=== PATIENT | female | born 1970 | race Caucasian/White ===

== ENCOUNTER 2024-03-16 12:33 | Outpatient (CLI) | payer OTHER, MEDICAID, SELFPAY ==
--- NOTE | ~2024-03-16 | US_ITS ---
EXAMINATION: US THYROID BIOPSY DATE: 03/16/2024 15:01 NOTCHING MACHINE OPERATOR INDICATION: TI-RADS 4 thyroid nodule TECHNIQUE: The procedure for biopsy of the thyroid nodule and its benefits and risks were explained to the patie nt. Potential risk included were not limited to bleeding, infection, and nondiagnostic specimen. The neck was prepped and draped in the usual sterile manner. 3 cc 1% lidocaine was used for local an esthesia. [7 passes were made with a 25G needle into the right thyroid lesion. Appropriate needle l ocation was documented with continuous sonographic guidance. The specimens were passed to the cytopa thologist in the room. All needles were removed and a sterile bandage applied over the biopsy site. The patient tolerated t he procedure without immediate complications or complaints. FINDINGS: 13 x 10 x 13 mm nodule within the posterior portion of the lower pole of the right lobe of the thyroi d gland, Subsequent images demonstrate needles advanced into the lesion for biopsy. IMPRESSION: 1. Successful ultrasound guided biopsy of a right thyroid nodule. Please refer to pathology report for final histologic analysis. Reviewed, dictated and finalized at location A. HING MACHINE OPERATOR IMPRESSION: 1. Successful ultrasound guided biopsy of a right thyroid nodule. Please refe r to pathology report for final histologic analysis.
--- OUTSIDE RECORDS SUMMARY | 2024-03-16 13:05 | XMS_ITS | Referral Summary ---
Author Organization [facility] Address [address] [place] [address] Care Team Providers Care Ticker Wirer Name Role Phone Pedro Luis Dozier MD Primary Care Provider [phone] Encounters Date Type Department Care Team Description 03/13/2024 Telephone [facility] Advanced Medicine [facility]) - [facility] ENT [address] [facility] 11th [place] [address] [place] [address] Sameera Do 03/13/2024 Orders Only [facility] Otolaryngology 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 Gender Identity Not on file Sexual Orientation Not on file Last Filed Vital Signs Vital Sign Reading Time Taken Comments Blood Pressure 136/101 12/20/2020 12:30 AM CDT Pulse 87 12/20/2020 12:30 AM CDT Temperature 36.3 ??C (97.4 ??F) 12/19/2020 6:19 PM CD T Respiratory Rate 14 12/19/2020 11:4 0 PM CDT Oxygen Saturation 95% 12/20/2020 12: 30 AM CDT Inhaled Oxygen Concentration - - Weight 100.7 kg (222 lb 0.1 oz) 12/19/2020 6:19 PM CDT Height - - Body Mass Index - - Plan of Treatment Not on file Insurance O Care Teams Ticker Wirer Relationship Specialty Start Date End Date Pedro Luis Dozier MD [address] [address] PCP - General Family Medicine 12/19/20
--- OUTSIDE RECORDS SUMMARY | 2024-03-16 13:05 | XMS_ITS | Encounter Summary ---
Author Organization [facility] Address [address] [place] [address]. [place] [address] [place] [address] Care Team Providers Care Cotton Grader Name Role Phone Edith Boo MD Primary Care Provider [phone] Encounter Details Date Type Department Care Team ([facility] Contact Info) Description 12/25/2023 [employer] Message Enc [facility] Orthopedic & Sports Medicine - [place] [id number] [place], [facility] Provider nerve testing Social History Tobacco Use Types Packs/Day Years Used Date Smoking Tobacco: Former Cigarettes 0.3 7.5 1 03/09/1986 - 07/07/1994 Smokeless Tobacco: Never Alcohol Use Standard Drinks/Week Comments Not Currently 0 (1 standard drink = 0.6 oz pur e alcohol) rarely AUDIT-C Answer Date Recorded Frequency of Alcohol Consumption Monthly or less 07/07/2018 Average Number of Drinks Not on file 019 Frequency of Binge Drinking Not on file 06/19 PHQ-2 Answer Date Recorded Patient Health Questionnaire-2 Score 0 09/11/2023 Comments No Sex and Gender Information Value Date Recorded Sex Assigned at Female 03/05/2024 8:18 AM QUAIL FARMER Legal Sex Female 8:06 PM CDT Gender Identity Female 12/29/2021 4:00 PM QUAIL FARMER Sexual Orientation Not on file documented as of this encounter Plan of Treatment Upcoming Encounters Date Type Department Care Team (Late st Contact Info) Description 03/20/2024 9:00 AM QUAIL FARMER Appointment [facility] Outpatient Rehab [address] [facility] [place] [address] Amna Dodson, PT [address] [place] [address] Gustavo Alvarado MD [address] [facility] [address] [place] [address] Hector Harrison MD [address] [facility] [place] [address] Litzy Story, OT [address] [place], [place] [id number] 03/26/2024 9:40 AM QUAIL FARMER Office Visit [facility] - [place] [address] [place], [place] [address] [phone] Hector Harrison MD [address] [place], [place] [address] 296- 03/30/2024 9:20 AM QUAIL FARMER Office Visit [facility] Multispecialty Care - [facility] [address] [facility] [place] [address] Suman Perez MD [address] [facility] [address] [place] [address] documented as of this encounter Visit Diagnoses Not on filedocumented in this encounter Care Teams Cotton Grader Relationship Specialty Start Date End Date Edith Boo MD [address] [facility] [address] [place] [address] PCP - General 05/20/23 documented as of this encounter
--- OUTSIDE RECORDS SUMMARY | 2024-03-16 13:05 | XMS_ITS | Clinical Summary ---
Author Organization [facility] Address [address] [place] [address] Care Team Providers Care Executive Cyber Leader Name Role Phone Pedro Luis Dozier MD Primary Care Provider [phone] Allergies No known active allergies Encounters Date Type Department Care Team Description 03/13/2024 [facility] Advanced Medicine [facility]) - [facility] ENT [address] [facility] Advanced Medicine 11th [place] [address] [place] [address] Sameera Do 03/13/[address] [facility] Otolaryngology [address] [facility] [place] [address] Hemalatha Kirk RN from Last 3 Months Social History Tobacco Use Types Packs/Day Years Used Date Smoking Tobacco: Never Assessed Personal Safety Answer Date Recorded Getting School Help Needed Not on file 04/15 Comments No Sex and Gender Information Value Date Recorded Sex Assigned at Not on file Legal Sex Female 8:41 AM STONEMASON Gender Identity Not on file Sexual Orientation [...] Mass Index - - Plan of Treatment Health Maintenance Due Date Last Done Comments Breast Cancer Screening-Mammogram 1971 Cervical Cancer Screening 1971 Colon Cancer Screening-Colonoscopy 1971 Depression Screening 1971 Hepatitis C Screening 1971 Pneumococcal vaccine <65 (1 of 2 - PCV) 08/11/1977 Hepatitis B Screening 08/11/1989 Regular Well Visit/Exam 18-64 08/11/1989 Zoster Vaccine (1 of 2) 08/11/2021 Covid-19 Vaccine (2 - 2023- season) 10/20/202303/2020 Influenza Vaccine (#1) 2023 DTaP/Tdap/Td Vaccine (2 - Td or Tdap) 04/26/203010/2020 Insurance [facility] Care Teams Executive Cyber Leader Relationship Specialty Start Date End Date Pedro Luis Dozier MD [address] [address] PCP - General Family Medicine 12/19/20
--- OUTSIDE RECORDS SUMMARY | 2024-03-16 13:06 | XMS_ITS | Encounter Summary ---
Author Organization [facility] Address [address] [place] [address]. [place] [address] [place] [address] Care Team Providers Care Adjuster And Inspector Name Role Phone Edith Boo MD Primary Care Provider [phone] Encounter Details Date Type Department Care Team (Late Contact Info) Description 02/18/2024 [facility] [place] BUSINESS OFF[facility] Provider ACTION REQUIRED Social History Tobacco Use Types Packs/Day Years [...] Sex Assigned at Female 03/05/2024 8:18 AM VEIN ACCESS TECHNICIAN Legal Sex Female 8:06 PM CDT Gender Identity Female 12/29/2021 4:00 PM VEIN ACCESS TECHNICIAN Sexual Orientation Not on file documented as of this encounter Plan of Treatment Upcoming Encounters Date Type Department Care Team (Late Contact Info) Description 03/20/2024 9:00 AM VEIN ACCESS TECHNICIAN Appointment [facility]hab [address] [facility] [place] [address] Amna Dodson, PT [address] [place] [address] Gustavo Alvarado MD [address] [facility] [address] [place] [address] Hector Harrison MD [address] [place] [address] Litzy Story, OT [address] [place] [address] 03/26/2024 9:40 AM VEIN ACCESS TECHNICIAN Office Visit [facility] Orthopedic & Sports Medicine - [place] [address] [place] [address] Hector Harrison MD [address] [place] [address] 03/30/2024 9:20 AM VEIN ACCESS TECHNICIAN Office Visit [facility] Multispecialty Care - [address], [address] [place] [address] Suman Perez MD [address] [facility] [address] [place] [address] documented as of this encounter Visit Diagnoses Not on filedocumented in this encounter Care Teams Adjuster And Inspector Relationship Specialty Start Date End Date Edith Boo MD [address] [facility] [address] [place] [address] PCP - General 05/20/23 documented as of this encounter
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
--- OUTSIDE RECORDS SUMMARY | 2024-03-16 13:07 | XMS_ITS | Clinical Summary ---
Author Organization [facility] [employer] Address [address] [place] [address] Care Team Providers Care Spanish Language Lecturer Name Role Phone Nancy Harp IT SUPPORT TECHNICIAN-COMPETITIVE SHOPPER Primary Care Provi tara Source Comments [facility],non-owned Affiliates and Associated Physician Practices is amultiple site organization consisting of ambulatory clinics and hospital sitesin [place], [place]. This disclosure is being madepursuant to the Care Everywhere program and may not contain all information available regarding this patient. Last updated 17.[facility] Allergies No known active allergies Medications * Be aware that medications may not be up to date on this document. Alwaysverify current medications with the patient. Medication Sig Dispensed Refills Start Date End Date Status fluticasone-vilanter ol (Breo Ellipta) 200-25 MCG/ACT inhaler once daily 11/17/2021 Active rosuvastatin (Crestor) 5 MG tablet once daily 10/26/2021 Active Levothyroxine Sodium 75 MCG/ML SOLN Active sertraline (Zoloft) 100 MG tablet Take 1 (one) tablet by mouth once daily Active clonazePAM (KlonoPIN) 0.5 MG tablet Take 1 (one) tablet by mouth 2 times daily as needed for Anxiety Active VITAMIN D PO Take 50,000 mg by mouth every 7 days Active azithromycin (Zithromax) 250 MG tablet 500 mg PO on the first day; then, 250 mg PO daily for 4 days 6 tablet 10/06/2022 Active methylPREDNISolone (Medrol Dosepak) 4 MG tablet Take by mouth as directed Take as directed by mouth per package instructions. Start 10/07/2022 21 tablet 10/06/2022 Active albuterol HFA (ProAir HFA) 108 (90 Base) MCG/ACT inhaler Inhale 2 (two) puffs by mouth every 4 hours as needed 8.5 g 10/06/2022 Active Social History Tobacco Use Types Packs/Day Years Used Date Smoking Tobacco: Former Cigarettes Smokeless Tobacco: Never Tobacco Cessation:Counseling Given: Not Answered Alcohol Use Standard Drinks/Week Comments Yes 0 (1 standard drink = 0.6 oz pur e alcohol) rarely PHQ-2 Answer Date Recorded Patient Health Questionnaire-2 Score 0 10/06/2022 Sex and Gender Information Value Date Recorded Sex Assigned at Not on file Gender Identity Not on file Sexual Orientation Not on file Last Filed Vital Signs Vital Sign Reading Time Taken Comments Blood Pressure 124/72 10/06/2022 10:54 AM CDT Pulse 110 10/06/2022 10:54 AM CDT Temperature - - Respiratory Rate - - Oxygen Saturation 97% 10/06/2022 10:54 AM CDT Inhaled Oxygen Concentration - - Weight 95.9 kg (211 lb 6.4 oz) 10/06/2022 10:54 AM CDT Height - - Body Mass Index - - Plan of Treatment Health Maintenance Due Date Last Done Comments COLOGUARD (AGES 45-75) - COL ON CA SCREENING [address] COLONOGRAPHY - COLON CA SCREENING 1971 FIT - COLON CA SCREENING 1971 FLEX SIG - COLON CA SCREENING 1971 MAMMOGRAM 1971 PAP SMEAR 1971 HIV SCREENING 08/11/1986 HEPATITIS C SCREENING 08/07/1989 DTAP/TDAP/TD VACCINES (1 - Tdap) 08/11/1990 HEPATITIS B VACCINE (1 of 3 - 19+ 3-dose series) 08/11/1990 PNEUMOCOCCAL VACCINE 50+ (1 of 1 - PCV) 08/11/2021 ZOSTER VACCINE (1 of 2) 08/11/2021 COVID-19 VACCINE (2 - 2023-2 5 season) 2023 05/20/2020 INFLUENZA VACCINE (#1) 2023 DEPRESSION SCREENING 02/19/2024 10/06/2022 COLONOSCOPY - COLON CA SCREENING 02/09/2032 02/08/2022, 02/08/2022 Colorectal Cancer Screening 02/09/2032 HIB VACCINE Aged Out No longer eligi ble based on patient's age to complete this topic HPV VACCINE Aged Out No longer eligi ble based on patient's age to complete this topic MENINGOCOCCAL (Group B) VACCINE Aged Out No longer eligible b ased on patient's age to complete this topic MENINGOCOCCAL VACCINE Aged Out No elli merlyn eligible based on patient's age to complete this topic PNEUMOCOCCAL VACCINE Aged Out No long er eligible based on patient's age to complete this topic Care Teams Spanish Language Lecturer Relationship Specialty Start Date End Date Nancy Harp, IT SUPPORT TECHNICIAN-COMPETITIVE SHOPPER [address], [place] [address] PCP - General 06/03/23
--- OUTSIDE RECORDS SUMMARY | 2024-03-16 13:07 | XMS_ITS | Referral Summary ---
Author Organization [facility] [employer] Address [address] [place] [address] Care Team Providers Care Seasonal Tax Preparer Name Role Phone Nancy Harp CHILD CARE TEAM LEAD-RADIOLOGICAL DEFENSE OFFICER Primary Care Provi tara Source Comments [facility] [employer],non-owned Affiliates and Associated Physician Practices is amultiple site organization consisting of ambulatory clinics and hospital sitesin [place], [place], [place] and [place]. This disclosure is being madepursuant to the Care Everywhere program and may not contain all information available regarding this patient. Last updated 17.[facility] [employer] Allergies No known active allergies Medications * [...] - Plan of Treatment Not on file Care Teams Seasonal Tax Preparer Relationship Specialty Start Date End Date Nancy Harp APRN-PATRICIO [address] [place] [address] PCP - General 06/03/23
--- OUTSIDE RECORDS SUMMARY | 2024-03-16 13:07 | XMS_ITS | Patient Health Record ---
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 Role Phone Edith Boo MD Primary Care Provider UnavailNai Washington Unavailable [phone] Giuseppe Fraire Unavailable [phone] [employer], Provider Unavailable Unavailable Ernesto Padron Unavailable [phone] Allergies No Known Allergies Results Component Value Reference Range Notes DRUG SCREEN, 14 DRUGS (DETEC TIMED), URINE Reviewed date:05/23/2023 12:00:00 AM Interpretation: Performing Lab: Notes/Report: Amphetamine negative Barbiturates negative Benzodiazipine negative Buprenorphine negative Cocaine negative MDMA/Ectasy negative Methadone negative Methamphetamine negative Morphine negative note ALL NEGATIVE Oxycodone negative Phenocyclidine negative THC negative Reason For Referral No Information Medications Medication SIG (Take, Route, Frequency, Duration) Notes Start Date End Date Status Aspirin Adult Low Strength 81 MG Oral 06/21/2023 Active Trelegy Ellipta 200-62.5-25 MCG/ACT INHALE 1 PUFF INTO THE LUNGS DAILY. Inhalation for 30 Days Active Rosuvastatin Calcium 5 MG TAKE ONE TABLET BY MOUTH DAILY Oral for 30 Days Active Sertraline HCl 100 MG 2 tablet every morning Oral Once a day for 90 days Active Atomoxetine HCl 40 mg TAKE ONE CAPSULE BY MOUTH EVERY MORNING FOR 30 DAYS for 30 Active clonazePAM 0.5 MG 1 tablet Oral Once a day for 30 days As needed 01/22/2024 Active Atomoxetine HCl 60 MG 1 capsule in the morning Orally Once a day for 30 days please discontinue 40mg remaining scripts Active Albuterol Sulfate HFA 108 (90 Base) MCG/ACT INHALE 2 PUFFS BY MOUTH EVERY 4 HOURS NEEDED Inhalation for 17 Days Active Vitamin D (Ergocalciferol) 1.25 MG (60551 UT) TAKE 1 CAPSULE BY MOUTH WEEKLY Oral for 28 Days Active Levothyroxine Sodium 75 MCG TAKE ONE TABLET BY MOUTH DAILY Oral for 30 Days Active Social History Tobacco Use: Social History [...] user Light cigarett e smoker (1-9 cigs/day) Problems Problem Type SNOMED Code ICD Code Onset Dates Problem Status W/U Status Risk Notes Problem Severe recurrent major depression without psychotic features (57206255) Major depressive disorder, recurrent severe without psychotic features (F33.2) Active confirmed Problem Generalized anxiety disorder (52476744) Generalized anxiety disorder (F41.1) Active confirmed Problem Posttraumatic stress disorder (55595764) Post-traumatic stress disorder, chronic (F43.12) Active confirmed Problem Attention deficit hyperactivity disorder (430368829) ADHD (attention deficit hyperactivity disorder), combined type (F90.2) Active confirmed Problem Depression (034403786) Depression (F32.A) Active confirmed Problem 35728364 Sleep disturbanc e (G47.9) Active confirmed Problem 7169690 Passive suicidal ideations (R45.851) Active confirmed Vital Signs Heart Rate 76 /min 10/18/2023 Oximetry 98 % 08/19/2023 Height-cm 167.64 cm 10/18/2023 Blood pressure diastolic 89 mm Hg 10/18/2023 Weight-kg 97.07 kg 05/23/2023 Height 66.00 in 10/18/2023 Blood pressure systolic 124 mm Hg 10/18/2023 Weight 214.00 lbs 05/23/2023 BMI 34.5 kg/m2 05/23/2023 Procedures Procedure Date Ordered Date Performed Result Body Sit e ADHD Testing 11/01/2023 N/A Encounters Encounter Location Date Provider Diagnosis [facility] [employer] [facility] [address] [place] [id number] 05/23/2023 Nai London Major depressive disorder, recurrent severe without psychotic features F33.2 ; Generalized anxiety disorder F41.1 and Post-traumatic stress disorder, chronic F43.12 [facility], [facility] [address] [place] [address] 06/21/2023 Nai Lita Major depressive disorder, recurrent severe without psychotic features F33.2 ; Generalized anxiety disorder F41.1 and Post-traumatic stress disorder, chronic F43.12 [facility], [facility] [address] [place] [address] 07/30/2023 Nai Lita Major depressive disorder, recurrent severe without psychotic features F33.2 [facility], [facility] [address] [place] [address] 08/01/2023 Nai Lita Major depressive disorder, recurrent severe without psychotic features F33.2 [facility], [facility] [address] [place] [address] 08/05/2023 Nai Lita Major depressive disorder, recurrent severe without psychotic features F33.2 [facility], [facility] [address] [place] [address] 08/07/2023 Nai Lita Major depressive disorder, recurrent severe without psychotic features F33.2 [facility], [facility] [address] [place] [address] 2023 Nai Lita Major depressive disorder, recurrent severe without psychotic features F33.2 [facility], [facility] [address] [place] [address] 08/15/2023 Nai Lita Major depressive disorder, recurrent severe without psychotic features F33.2 [facility], [facility] [address] [place] [address] 08/19/2023 Nai Lita Major depressive disorder, recurrent severe without psychotic features F33.2 [facility], [facility] [address] [place] [address] 08/21/2023 Nai Lita Major depressive disorder, recurrent severe without psychotic features F33.2 [facility], [facility] [address] [place] [address] 08/26/2023 Nai Lita Major depressive disorder, recurrent severe without psychotic features F33.2 ; Generalized anxiety disorder F41.1 and Post-traumatic stress disorder, chronic F43.12 [facility], [facility] [address] [place] [address] 08/29/2023 Nai Lita Major depressive disorder, recurrent severe without psychotic features F33.2 [facility], [facility] [address] [place] [address] 09/09/2023 Giuseppe Juno Major depressive disorder, recurrent severe without psychotic features F33.2 [facility], [facility] [address] [place] [address] 09/19/2023 Ernesto Clubb Major depressive disorder, recurrent severe without psychotic features F33.2 [facility], [facility] [address] [place] [address] 09/26/2023 Ernesto Clubb Major depressive disorder, recurrent severe without psychotic features F33.2 [facility], [facility] [address] [place] [address] 09/27/2023 Nai Lita Major depressive disorder, recurrent severe without psychotic features F33.2 ; Generalized anxiety disorder F41.1 and Post-traumatic stress disorder, chronic F43.12 [facility] [address] [place] [address] 10/07/2023 Ernesto Clubb Major depressive disorder, recurrent severe without psychotic features F33.2 [facility], [facility] [address] [place] [address] 10/18/2023 Ernesto Clubb Major depressive disorder, recurrent severe without psychotic features F33.2 ; Generalized anxiety disorder F41.1 ; Sleep disturbance G47.9 and Passive suicidal ideations R45.851 [facility], [facility] [address] [facility] [address] [place] [address] 11/01/2023 Nai Lita [facility] [address] [place] [address] 11/01/2023 Nai Lita Major depressive disorder, recurrent severe without psychotic features F33.2 ; Generalized anxiety disorder F41.1 ; Post-traumatic stress disorder, chronic F43.12 and ADHD (attention deficit hyperactivity disorder), combined type F90.2 [facility], [facility] [address] [place] [address] 11/04/2023 Giuseppe Juno ADHD (attention deficit hyperactivity disorder) F90.9 [facility], [facility] [address] [place] [address] 11/06/2023 Nai Lita Major depressive disorder, recurrent severe without psychotic features F33.2 ; Generalized anxiety disorder F41.1 ; Post-traumatic stress disorder, chronic F43.12 and ADHD (attention deficit hyperactivity disorder), combined type F90.2 [facility], [facility] [address] [place] [address] 12/11/2023 Nai Lita Major depressive disorder, recurrent severe without psychotic features F33.2 ; Generalized anxiety disorder F41.1 ; Post-traumatic stress disorder, chronic F43.12 and ADHD (attention deficit hyperactivity disorder), combined type F90.2 [facility], [facility] [address] [place] [address] 05/10/2023 Provider [facility], [facility] [address] [place] [address] 05/13/2023 Provider [facility], [facility] [address] [place] [address] 06/03/2023 [facility], [facility] [address] [place] [address] 06/21/2023 Provider [facility], [facility] [address] [place] [address] 07/04/2023 [facility], [facility] [address] [place] [address] 07/06/2023 Provider [facility], [facility] [address] [place] [address] 07/07/2023 Provider [facility], [facility] [address] [place] [address] 07/23/2023 [facility] [address] [place] [address] 07/25/2023 [facility] [address] [place] [address] 07/31/2023 [facility] [address] [place] [address] 08/06/2023 [facility] [address] [place] [address] 10/25/2023 Nai London [facility] [employer], [facility] [address] [place] [address] 11/06/2023 Nai London Assessments Encounter Date Diagnosis (ICD Code) Assessment Notes Treatment Notes Treatment Clinical Notes Section Notes 08/26/2023 Major depressive disorder, recurrent severe without psychotic features (ICD-10 - F33.2) 08/26/2023 Generalized anxiety disorder (ICD-10 - F41.1) 12/11/2023 Major depressive disorder, recurrent severe without psychotic features (ICD-10 - F33.2) Common side effects to SSRI medications include headaches, dry mouth/eye, GI upset (including indigestion, nausea, diarrhea), sleeping problems (insomnia or drowsiness), decreased libido, blurred vision, dizziness. Generally, side effects will subside or lessen with time and are common during drug initiation and dose changes. If they persist please contact the office. 11/01/2023 Major depressive disorder, recurrent severe without psychotic features (ICD-10 - F33.2) 11/04/2023 ADHD (attention deficit hyperactivity disorder) (ICD-10 - F90.9) 11/06/2023 Major depressive disorder, recurrent severe without psychotic features (ICD-10 - F33.2) Common side effects to SSRI medications include headaches, dry mouth/eye, GI upset (including indigestion, nausea, diarrhea), sleeping problems (insomnia or drowsiness), decreased libido, blurred vision, dizziness. Generally, side effects will subside or lessen with time and are common during drug initiation and dose changes. If they persist please contact the office. 05/23/2023 Major depressive disorder, recurrent severe without psychotic features (ICD-10 - F33.2) 05/23/2023 Generalized anxiety disorder (ICD-10 - F41.1) 05/23/2023 Post-traumatic stress disorder, chronic (ICD-10 - F43.12) 06/21/2023 Major depressive disorder, recurrent severe without psychotic features (ICD-10 - F33.2) 06/21/2023 Generalized anxiety disorder (ICD-10 - F41.1) 06/21/2023 Post-traumatic stress disorder, chronic (ICD-10 - F43.12) 07/30/2023 Major depressive disorder, recurrent severe without psychotic features (ICD-10 - F33.2) Continue Spravato treatment twice weekly. Continue current medications 08/01/2023 Major depressive disorder, recurrent severe without psychotic features (ICD-10 - F33.2) Continue twice weekly esketamine treatments. 08/05/2023 Major depressive disorder, recurrent severe without psychotic features (ICD-10 - F33.2) Continue current medications. Continue esketamine treatments twice weekly. Next follow up is next week. 08/07/2023 Major depressive disorder, recurrent severe without psychotic features (ICD-10 - F33.2) Continue current medications. Scheduled for office follow up apt next week. Continue esketamine treatments twice weekly. 2023 Major depressive disorder, recurrent severe without psychotic features (ICD-10 - F33.2) Continue current medications. Continue esketamine treatments twice weekly. 08/15/2023 Major depressive disorder, recurrent severe without psychotic features (ICD-10 - F33.2) Continue esketamine treatments twice weekly Continue current medications. 08/19/2023 Major depressive disorder, recurrent severe without psychotic features (ICD-10 - F33.2) continue esketamine treatments bi-weekly. Continue current medication 08/21/2023 Major depressive disorder, recurrent severe without psychotic features (ICD-10 - F33.2) Continue twice weekly esketamine treatment. 08/29/2023 Major depressive disorder, recurrent severe without psychotic features (ICD-10 - F33.2) Continue weekly esketamine treatments. 09/09/2023 Major depressive disorder, recurrent severe without psychotic features (ICD-10 - F33.2) 09/19/2023 Major depressive disorder, recurrent severe without psychotic features (ICD-10 - F33.2) 09/26/2023 Major depressive disorder, recurrent severe without psychotic features (ICD-10 - F33.2) 09/27/2023 Major depressive disorder, recurrent severe without psychotic features (ICD-10 - F33.2) 10/07/2023 Major depressive disorder, recurrent severe without psychotic features (ICD-10 - F33.2) 1. Depression: - She reports a depression rating of 5/10, which is unchanged from the previous visit. - Plan: a. Continue her current antidepressant medication. b. Encourage her to engage in regular physical activity and maintain a healthy sleep schedule. c. Schedule a follow-up appointment in 4 weeks to reassess the depression severity and treatment effectiveness. 2. Anxiety: - She reports an anxiety rating of 7-8/10, indicating a high level of anxiety. - Plan: a. Consider adjusting her current anxiolytic medication or adding an additional medication to better manage anxiety symptoms. b. Encourage her to practice relaxation techniques, such as deep breathing exercises and mindfulness meditation. c. Refer her to a therapist for cognitive-behav ioral therapy (CBT) to address anxiety triggers and coping strategies. d. Schedule a follow-up appointment in 4 weeks to reassess anxiety levels and treatment effectiveness. 3. Suicidal ideation: - She reports occasional fleeting thoughts of suicide but denies any self-harm intentions. - Plan: a. Continue to monitor her mental status closely during follow-up appointments. b. Encourage her to reach out to her support system and engage in activities that promote mental well-being. c. Provide her with crisis hotline information and encourage her to seek help if suicidal thoughts intensify or become more frequent. 4. Sleep: - She reports getting 6-7 hours of sleep per night. - Plan: a. Encourage her to maintain a consistent sleep schedule and practice good sleep hygiene. b. Consider adjusting medications if sleep disturbances persist or worsen. 5. General health: - She denies any delusions, paranoia, hallucinations, dizziness, headache, vision changes, sore throat, abdominal pain, nausea, vomiting, diarrhea, or pain with urination. - Plan: a. Continue to monitor her overall health during follow-up appointments. b. Encourage her to report any new or worsening symptoms promptly. 10/18/2023 Major depressive disorder, recurrent severe without psychotic features (ICD-10 - F33.2) 1. Major Depressive Disorder/ Passive Suicidal ideation - She reports depression rating of 5/10. - She reports suicidal thoughts but no plan or intent. - No guns in her room. - Treatment plan: a. Continue current antidepressant medication. b. Schedule follow-up in 4 weeks to monitor progress. c. Encourage regular physical activity and healthy sleep schedule. d. Consider referral to therapist for additional support and coping strategies. 2. Generalized Anxiety Disorder - She reports anxiety rating of 8/10. - Treatment plan: a. Continue current anxiolytic medication. b. Schedule follow-up in 4 weeks to monitor progress. c. Encourage relaxation techniques like deep breathing and mindfulness meditation. d. Consider referral to therapist for additional support and coping strategies. 3. Sleep Disturbance - She reports 6-7 hours of sleep nightly with occasional nightmares. - Treatment plan: a. Encourage consistent sleep schedule and good sleep hygiene. b. Monitor sleep quality at follow-ups. 4. Appetite Disturbance - She reports fair but not strong appetite. - Treatment plan: a. Encourage balanced diet and regular meals. b. Monitor appetite at follow-ups. 5. No reported delusions, paranoia, hallucinations, or physical complaints such as headache, room spinning, dizziness, or nausea. 10/18/2023 Generalized anxiety disorder (ICD-10 - F41.1) 1. Major Depressive Disorder/ Passive Suicidal ideation - She reports depression rating of 5/10. - She reports suicidal thoughts but no plan or intent. - No guns in her room. - Treatment plan: a. Continue current antidepressant medication. b. Schedule follow-up in 4 weeks to monitor progress. c. Encourage regular physical activity and healthy sleep schedule. d. Consider referral to therapist for additional support and coping strategies. 2. Generalized Anxiety Disorder - She reports anxiety rating of 8/10. - Treatment plan: a. Continue current anxiolytic medication. b. Schedule follow-up in 4 weeks to monitor progress. c. Encourage relaxation techniques like deep breathing and mindfulness meditation. d. Consider referral to therapist for additional support and coping strategies. 3. Sleep Disturbance - She reports 6-7 hours of sleep nightly with occasional nightmares. - Treatment plan: a. Encourage consistent sleep schedule and good sleep hygiene. b. Monitor sleep quality at follow-ups. 4. Appetite Disturbance - She reports fair but not strong appetite. - Treatment plan: a. Encourage balanced diet and regular meals. b. Monitor appetite at follow-ups. 5. No reported delusions, paranoia, hallucinations, or physical complaints such as headache, room spinning, dizziness, or nausea. 10/18/2023 Sleep disturbance (ICD-10 - G47.9) 1. Major Depressive Disorder/ Passive Suicidal ideation - She reports depression rating of 5/10. - She reports suicidal thoughts but no plan or intent. - No guns in her room. - Treatment plan: a. Continue current antidepressant medication. b. Schedule follow-up in 4 weeks to monitor progress. c. Encourage regular physical activity and healthy sleep schedule. d. Consider referral to therapist for additional support and coping strategies. 2. Generalized Anxiety Disorder - She reports anxiety rating of 8/10. - Treatment plan: a. Continue current anxiolytic medication. b. Schedule follow-up in 4 weeks to monitor progress. c. Encourage relaxation techniques like deep breathing and mindfulness meditation. d. Consider referral to therapist for additional support and coping strategies. 3. Sleep Disturbance - She reports 6-7 hours of sleep nightly with occasional nightmares. - Treatment plan: a. Encourage consistent sleep schedule and good sleep hygiene. b. Monitor sleep quality at follow-ups. 4. Appetite Disturbance - She reports fair but not strong appetite. - Treatment plan: a. Encourage balanced diet and regular meals. b. Monitor appetite at follow-ups. 5. No reported delusions, paranoia, hallucinations, or physical complaints such as headache, room spinning, dizziness, or nausea. 09/27/2023 Generalized anxiety disorder (ICD-10 - F41.1) 11/06/2023 Generalized anxiety disorder (ICD-10 - F41.1) 11/01/2023 Generalized anxiety disorder (ICD-10 - F41.1) 12/11/2023 Generalized anxiety disorder (ICD-10 - F41.1) 08/26/2023 Post-traumatic stress disorder, chronic (ICD-10 - F43.12) 12/11/2023 Post-traumatic stress disorder, chronic (ICD-10 - F43.12) 11/01/2023 Post-traumatic stress disorder, chronic (ICD-10 - F43.12) 11/01/2023 ADHD (attention deficit hyperactivity disorder), combined type (ICD-10 - F90.2) Rule in or rule out diagnosis pending evaluation 11/06/2023 Post-traumatic stress disorder, chronic (ICD-10 - F43.12) 09/27/2023 Post-traumatic stress disorder, chronic (ICD-10 - F43.12) 10/18/2023 Passive suicidal ideations (ICD-10 - R45.851) 1. Major Depressive Disorder/ Passive Suicidal ideation - She reports depression rating of 5/10. - She reports suicidal thoughts but no plan or intent. - No guns in her room. - Treatment plan: a. Continue current antidepressant medication. b. Schedule follow-up in 4 weeks to monitor progress. c. Encourage regular physical activity and healthy sleep schedule. d. Consider referral to therapist for additional support and coping strategies. 2. Generalized Anxiety Disorder - She reports anxiety rating of 8/10. - Treatment plan: a. Continue current anxiolytic medication. b. Schedule follow-up in 4 weeks to monitor progress. c. Encourage relaxation techniques like deep breathing and mindfulness meditation. d. Consider referral to therapist for additional support and coping strategies. 3. Sleep Disturbance - She reports 6-7 hours of sleep nightly with occasional nightmares. - Treatment plan: a. Encourage consistent sleep schedule and good sleep hygiene. b. Monitor sleep quality at follow-ups. 4. Appetite Disturbance - She reports fair but not strong appetite. - Treatment plan: a. Encourage balanced diet and regular meals. b. Monitor appetite at follow-ups. 5. No reported delusions, paranoia, hallucinations, or physical complaints such as headache, room spinning, dizziness, or nausea. 11/06/2023 ADHD (attention deficit hyperactivity disorder), combined type (ICD-10 - F90.2) ADHD evaluation reviewed, supportive of diagnosis in conjunction with reported history and symptoms. Discussed risks/benefits/ alternatives to atomoxetine, including GI side effects, weight loss, irritability, constipation, sexual dysfunction, increase in blood pressure and liver damage. Patient denies any h/o cardiovascular disease, including hypertension, tachyarrhythmia s. 12/11/2023 ADHD (attention deficit hyperactivity disorder), combined type (ICD-10 - F90.2) Discussed risks/benefits/ alternatives to atomoxetine, including GI side effects, weight loss, irritability, constipation, sexual dysfunction, increase in blood pressure and liver damage. Patient denies any h/o cardiovascular disease, including hypertension, tachyarrhythmia s. 08/26/2023 Other Decrease Spravato treatments to once weekly. Continue sertraline 150mg daily, Klonopin PRN. Patient educated on all medications including potential benefits, side effects, risks. Educated on proper dosing schedule and importance of compliance. [place] PD[place] report checked and consistent with prescription history, no controlled substance prescriptions from other providers. 09/27/2023 Other Decrease esketamine treatments to every 10 days. Increase sertraline to 200mg daily for mood, anxiety. Patient educated on all medications including potential benefits, side effects, risks. Educated on proper dosing schedule and importance of compliance. [place] report checked and consistent with prescription history, no controlled substance prescriptions from other providers. 11/01/2023 Other Decrease esketamine treatment to every 14 weeks once insurance approval. Continue sertraline 200mg daily, clonazepam PRN Patient educated on all medications including potential benefits, side effects, risks. Educated on proper dosing schedule and importance of compliance. [place] report checked and consistent with prescription history, no controlled substance prescriptions from other providers. Schedule for ADHD evaluation. 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 Patient educated on all medications including potential benefits, side effects, risks. Educated on proper dosing schedule and importance of compliance. 12/11/2023 Other Increase atomoxetine to 60mg daily for ADHD symptoms. Refills of sertraline and clonazepam sent in. Patient educated on all medications including potential benefits, side effects, risks. Educated on proper dosing schedule and importance of compliance. [place] checked and consistent with prescription history, no controlled substance prescriptions from other providers. 10/25/2023 Other Electronic Prior Authorization was requested for Spravato (84 MG Dose) 28 MG/DEVICE Solution Therapy Pack. Provider can order medication once approval received. Plan Of Treatment Pending Test Test Name Order Date ADHD Testing 11/01/2023 Insurance Providers Payer Name Payer Address Payer Phone Subscriber Number Group Number Insured Name Patient Relationship to Insured Coverage Start Date Coverage End Date [employer] Pos [address] [place] [address] [id number] Spouse - patient is the spouse of the insured Medicaid- [place] [address] [address] [place] [address] [id number] NARCISA GAMINO Self - patient is the insured Medications Administered Medication Instructions Date of Administration Dosage Notes Spravato (56 MG Dose) 07/30/2023 56 mg Spravato (84 MG Dose) 08/01/2023 84 mg Spravato (84 MG Dose) 08/05/2023 84 mg Spravato (84 MG Dose) 08/07/2023 84 mg Spravato (84 MG Dose) 2023 84 mg Spravato (84 MG Dose) 08/15/2023 84 mg Spravato (84 MG Dose) 08/19/2023 84 mg Spravato (84 MG Dose) 08/21/2023 84 mg Spravato (84 MG Dose) 08/29/2023 84 mg Spravato (84 MG Dose) 09/09/2023 84 mg Spravato (84 MG Dose) 09/19/2023 84 mg Spravato (84 MG Dose) 09/26/2023 84 mg Spravato (84 MG Dose) 10/07/2023 84 mg Spravato (84 MG Dose) 10/18/2023 84 mg Medical (General) History Medical History History ICD Code Problems: Chronic post-traumatic stress disorder Generalized anxiety disorder Severe recurrent major depression withou t psychotic features , Surgical History Surgery Date(Month/Year) Other Neurosurgery 07/01/1987 Subdural hematoma (43397) 07/01/1987 Rotator cuff surgery
--- OUTSIDE RECORDS SUMMARY | 2024-03-16 13:07 | XMS_ITS | Encounter Summary ---
Author Organization [facility] Address [address] [place] [address]. [place] [address] [place] [address] Care Team Providers Care Detail Drafter Name Role Phone Pedro Luis Dozier MD Primary Care Provider [phone] Edith Boo MD Primary Care Provider [phone] Reason for Visit * Reason Onset Date Comments Preprocedure Call 01/30/2019 Encounter Details Date Type Department Care Team (Late st Contact Info) Description 01/30/2019 Pre-Procedure Call [facility] Imaging [address] [place] [address] [place] [address] [facility] [address] [place] [address] Preprocedure Call Social History Tobacco Use Types Packs/Day Years Used Date Smoking Tobacco: Former Cigarettes Q uit: 07/07/1994 Smokeless Tobacco: Never Alcohol Use Standard Drinks/Week Comments Yes 0 (1 standard drink = 0.6 oz pur e alcohol) rarely AUDIT-C Answer Date Recorded Frequency of Alcohol Consumption Monthly or less 07/07/2018 Average Number of Drinks Not on file 019 Frequency of Binge Drinking Not on file 06/19 Comments No Sex and Gender Information Value Date Recorded Sex Assigned at Female 03/05/2024 8:18 AM 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 Legal Sex Female 8:06 PM CDT Gender Identity Female 12/29/2021 4:00 PM 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 Sexual Orientation Not on file documented as of this encounter Last Filed Vital Signs Vital Sign Reading Time Taken Comments Blood Pressure - - Pulse - - Temperature - - Respiratory Rate - - Oxygen Saturation - - Inhaled Oxygen Concentration - - Weight 90.7 kg (200 lb) 01/30/2019 12:00 AM [employer]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 Height 167.6 cm (5' 6 ) 01/30/2019 12:00 AM 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 Body Mass Index 32.28 01/30/2019 12:00 AM 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 documented in this encounter Plan of Treatment Upcoming Encounters Date Type Department Care Team (Late st Contact Info) Description 03/20/2024 9:00 AM BE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 Appointment [facility] Outpatient Rehab [address] [facility], [place] [id number] Amna Dodson, PT [address] [place], [place] [address] Gustavo Alvarado MD [address] [facility] [address] [place], [place] [address] 258- Hector Harrison MD [address] [place], [place] [id number] 157- Litzy Story, OT [address] [place], [place] [address] 03/26/2024 9:40 AM BE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 Office Visit [facility] Orthopedic & Sports Medicine - Painter [address] [place], [place] [address] [phone] eHctor Harrison MD [address] [address] 03/30/2024 9:20 AM BE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 Office Visit [facility] [address] [facility] [facility] [place] [address] Suman Perez MD [address] [place] [address] [address] [place] [address] documented as of this encounter Visit Diagnoses Not on filedocumented in this encounter Additional Health Concerns Infection Onset Date Last Indicated Resolved Time COVID-19 Rule Out 10/08/2022 10/08/2022 10/08/2022 4:58 AM CDT documented as of this encounter Care Teams Detail Drafter Relationship Specialty Start Date End Date Pedro Luis Dozier MD [address] [facility] [address] [place] [address] PCP - General FAMILY PRACTICE 07/07/18 05/19/23 Edith Boo MD [address] [facility] [address] [place] [address] PCP - General 05/20/23 documented as of this encounter
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
--- OUTSIDE RECORDS SUMMARY | 2024-03-16 13:07 | XMS_ITS | Clinical Summary ---
Author Organization [facility] Address [address] [place] [address]. [place] [address] [place] [address] Care Team Providers Care Director Of Program Management Name Role Phone Edith Boo MD Primary Care Provider [phone] Allergies Active Allergy Reactions Criticality Noted Date Comments Doxycycline Nausea and Vomiting 03/07/2024 Medications albuterol sulfate HFA 108 (90 Base) MCG/ACT inhaler 6 06/21/19 19 Active clonazePAM 0.5 MG tablet Take 1 tablet (0.5 mg total) by mouth 2 (two) times daily as needed for Anxiety. 2 10/12/19 19 Active albuterol (2.5 MG/3ML) 0.083% nebulizer solutionIndication s:Moderate persistent asthma with exacerbation ([facility]) Take 3 mLs (2.5 mg total) by nebulization every 4 (four) hours as needed for Wheezing. 180 mL 11/11/19 19 Active rosuvastatin (CRESTOR) 5 MG tablet Take 1 tablet (5 mg total) by mouth daily. 10/27/19 22 Active sertraline (ZOLOFT) 100 MG tablet Take 1 tablet (100 mg total) by mouth daily. Active levothyroxine (SYNTHROID) 75 MCG tablet Take 1 tablet (75 mcg total) by mouth every morning. 01/23/20 22 Active fluticasone propionate (FLONASE) 50 MCG/ACT nasal sprayIndications:E nvironmental and seasonal allergies 2 sprays by Nasal route daily. 16 g 11 01/24/20 23 Active Additional Information Patient taking differently:2 spray NasalAs needed, Reported on 03/07/2024 MIEBO 1.338 GM/ML Solution Place 1 drop into both eyes 4 (four) times daily. 06/05/19 24 Active vitamin D3, cholecalciferol, 125 mcg capsule Take 1 capsule (125 mcg total) by mouth daily. Active SPRAVATO, 84 MG DOSE, 28 MG/DEVICE Solution Therapy Pack 08/05/19 24 Active SPRAVATO, 56 MG DOSE, 28 MG/DEVICE Solution Therapy Pack 07/29/19 24 Active XIIDRA 5 % ophthalmic solution 07/08/19 24 Active tobramycin-dexamet hasone (TOBRADEX) ophthalmic solution 06/21/19 24 Active atomoxetine (STRATTERA) 40 MG capsule Take 1 capsule (40 mg total) by mouth every morning. Active Fluticasone-Umecli din-Vilant (TRELEGY ELLIPTA) 200-62.5-25 MCG/ACT AEROSOL POWDER, BREATH ACTIVATEDIndicatio ns:Severe persistent asthma without complication ([facility]) INHALE 1 PUFF INTO THE LUNGS DAILY. 60 each 11 01/22/20 24 Active cefdinir (OMNICEF) 300 MG Cap capsule Take 1 capsule (300 mg total) by mouth 2 (two) times daily. 01/13/20 24 Active atomoxetine (STRATTERA) 60 MG capsule Take 1 capsule (60 mg total) by mouth every morning. 01/06/20 24 Active doxycycline hyclate (VIBRA-TABS) 100 MG tablet Take by mouth 2 (two) times daily. 01/28/20 24 Active predniSONE (DELTASONE) 20 MG tablet TAKE TWO TABLETS BY MOUTH DAILY FOR 5 DAYS, THEN ONE TABLET BY MOUTH DAILY FOR 5 DAYS 01/28/20 24 Active ondansetron (ZOFRAN-ODT) 4 MG disintegrating tablet Take 1 tablet (4 mg total) by mouth every 8 (eight) hours as needed for Nausea. 20 tablet 02/04/20 24 Active amoxicillin-clavul anate (AUGMENTIN) 875-125 MG tablet Take 1 tablet (875 mg total) by mouth 2 (two) times daily for 10 days. 20 tablet 02/15/20 24 025 permethrin (ELIMITE) 5 % creamIndications:S cabies Apply topically once for 1 dose. Apply head to toe before bedtime, leave on 8-14 hours, then rinse off x1 application 60 g 03/07/19 25 025 Active Problems Problem Noted Date Diagnosed Date S/P arthroscopy of right shoulder 06/25/2023 Traumatic complete tear of r ight rotator cuff, initial encounter 05/21/2023 Rotator cuff arthropathy of right shoulder 05/20 Environmental and seasonal allergies 01/23/2023 MIGUE on CPAP 01/23/2023 Strain of rotator cuff of right shoulder 023 Strain of rotator cuff of right shoulder 023 Internal and external hemorrhoids without compli cation 02/08/2022 Diverticulosis 02/08/2022 Anxiety 11/10/2018 PTSD (post-traumatic stress disorder) 05/19/2017 Severe persistent asthma wit hout complication ([facility]) 05/02/2017 Encounters Date Type Department Care Team Description 03/13/2024 9:00 AM MUCK HAULER - 03/13/2024 11:59 PM MUCK HAULER Hospital Encounter [facility] [address] [place] [address] Amna Dodson, PT Gustavo Alvarado MD Lerner, Andres, MD Troxell, Tonya G, OT [place] Discharge Disposition: Home or Self Care (Routine Discharge) 03/13/2024 Travel 03/10/2024 7:37 AM MUCK HAULER - 03/10/2024 11:59 PM MUCK HAULER Hospital Encounter [facility] MRI [address] [place] [address] Aravind Redding FNP Discharge Disposition: Home or Self Care (Routine Discharge) 03/10/2024 Travel 03/07/2024 10:00 AM MUCK HAULER Office Visit [facility] [address] [place] [address] Radha Romo, DAREN Hand Pain (C/o bilateral hand bruising, itchiness and pain. States that this started Saturday. Also complaining of her skin feeling like it is burning.) 03/07/2024 Travel 03/05/2024 8:15 AM MUCK HAULER - 03/05/2024 11:59 PM MUCK HAULER Hospital Encounter [facility] [address] [place] [address] Hector Harrison MD Troxell, Tonya G, OT [place] Discharge Disposition: Home or Self Care (Routine Discharge) 03/05/2024 Travel 03/04/2024 8:00 AM MUCK HAULER Office Visit [facility] Audiology [address] [place] [address] Candy Lynch AUD Rakers, Morgan E, PA-C Hearing Problem 03/04/2024 Travel 02/28/2024 9:00 AM MUCK HAULER - 02/28/2024 11:59 PM MUCK HAULER Hospital Encounter [facility] [address] [place] [address] Amna Dodson, PT Gustavo Alvarado MD Lerner, Andres, MD Troxell, Tonya G, OT [place] Discharge Disposition: Home or Self Care (Routine Discharge) 02/28/2024 Travel 02/18/2024 11:15 AM MUCK HAULER - 02/18/2024 11:59 PM MUCK HAULER Hospital Encounter [facility] [address] [place] [address] Amna Dodson, PT Gustavo Alvarado MD Lerner, Andres, MD Troxell, Tonya G, OT [place] Discharge Disposition: Home or Self Care (Routine Discharge) 02/18/2024 [facility] BUSINESS OFFICE [facility] Provider ACTION REQUIRED 02/18/2024 Travel 02/17/2024 11:34 AM MUCK HAULER - 02/17/2024 3:46 PM MUCK HAULER Emergency [facility] [place] [address] Young, Jacqueline Rajat, PA Earache; Neurologic Problem Discharge Disposition: Home or Self Care (Routine Discharge) 02/17/2024 Travel 02/15/2024 4:57 AM MUCK HAULER - 02/15/2024 7:20 AM MUCK HAULER Emergency [facility] Emergency Room [address] [place] [address] Jonna Durham MD Dizziness Discharge Disposition: Home or Self Care (Routine Discharge) 02/15/2024 Travel 02/13/2024 9:00 AM MUCK HAULER - 02/13/2024 11:59 PM MUCK HAULER Hospital Encounter [facility] [address] [place] [address] Amna Dodson, PT Gustavo Alvarado MD Lerner, Andres, MD Troxell, Tonya G, OT [place] Discharge Disposition: Home or Self Care (Routine Discharge) 02/13/2024 Travel 02/10/2024 8:59 AM MUCK HAULER - 02/10/2024 11:59 PM MUCK HAULER Hospital Encounter [facility] [address] [place] [address] Amna Dodson, PT Gustavo Alvarado MD Lerner, Andres, MD Troxell, Tonya G, OT [place] Discharge Disposition: Home or Self Care (Routine Discharge) 02/10/2024 Travel 02/07/2024 10:47 AM MUCK HAULER - 02/07/2024 11:59 PM MUCK HAULER Hospital Encounter [facility] Ultrasound [address] [place] [address] Ej Schmid MD Discharge Disposition: Home or Self Care (Routine Discharge) 02/07/2024 Travel 02/06/2024 8:00 AM MUCK HAULER - 02/06/2024 11:59 PM MUCK HAULER Hospital Encounter [facility] Laboratory [address] [place] [address] Ej Schmid MD Discharge Disposition: Home or Self Care (Routine Discharge) 02/06/2024 Orders Only [facility] Laboratory [address] [place] [address] Ej Schmid MD 02/06/2024 Travel 02/04/2024 5:47 AM MUCK HAULER - 02/04/2024 7:43 AM MUCK HAULER Emergency [facility] Emergency Room [address] [place] [address] Jonna Durham MD Ear Problem; Sore Throat Discharge Disposition: Home or Self Care (Routine Discharge) 02/04/2024 Travel 02/03/2024 1:00 PM MUCK HAULER - 02/03/2024 11:59 PM MUCK HAULER Hospital Encounter [facility] [address] [place] [address] Amna Dodson, PT Gustavo Alvarado MD Lerner, Andres, MD Troxell, Tonya G, OT [place] Discharge Disposition: Home or Self Care (Routine Discharge) 02/03/2024 Travel 01/31/2024 9:57 AM MUCK HAULER - 01/31/2024 11:59 PM MUCK HAULER Hospital Encounter [facility] [address] [place] [address] Hector Harrison MD Troxell, Tonya G, OT [place] Discharge Disposition: Home or Self Care (Routine Discharge) 01/31/2024 8:55 AM MUCK HAULER - 01/31/2024 9:56 AM MUCK HAULER Hospital Encounter [facility] Laboratory [address] [place] [address] Ej Schmid MD Discharge Disposition: Home or Self Care (Routine Discharge) 01/31/2024 12:15 AM MUCK HAULER - 01/31/2024 3:09 AM MUCK HAULER Emergency [facility] Emergency Room [address] [place] [address] Keon Swartz MD Earache Discharge Disposition: Home or Self Care (Routine Discharge) 01/31/2024 Travel 01/31/2024 Orders Only [facility] Laboratory [address] [place] [address] Ej Schmid MD 01/30/2024 9:20 AM MUCK HAULER Office Visit [facility] [address] [place] [address] Dyan Jaeger, DAREN Ear Problem (Complains of 7/10 pain to right ear feels like something is building up in the ear. Reports unsteady on feet, vertigo. Seen PCP this week receiving Meclizine, ABT, and PCP recommended CT which is scheduled for 02/05/24) 01/30/2024 Travel 01/27/2024 2:18 PM MUCK HAULER - 01/27/2024 11:59 PM MUCK HAULER Hospital Encounter [facility] [address] [place] [address] Amna Dodson, PT Gustavo Alvarado MD Lerner, Andres, MD Troxell, Tonya G, OT [place] Discharge Disposition: Home or Self Care (Routine Discharge) 01/27/2024 7:44 AM MUCK HAULER - 01/27/2024 2:17 PM MUCK HAULER Hospital Encounter [facility] [address] [place] [address] Ej Schmid MD Discharge Disposition: Home or Self Care (Routine Discharge) 01/27/2024 Travel 01/23/2024 10:20 AM MUCK HAULER Office Visit [facility] Medical Group Orthopedic & Sports Medicine - [address] [address] Hector Harrison MD New Patient (Right cubital tunnel. ) 01/23/2024 Travel 01/22/2024 9:46 AM MUCK HAULER - 01/22/2024 11:59 PM MUCK HAULER Hospital Encounter [address] [address] Ej Schmid MD Discharge Disposition: Home or Self Care (Routine Discharge) 01/22/2024 7:59 AM MUCK HAULER - 01/22/2024 9:45 AM MUCK HAULER Hospital Encounter [facility] Cardiopulmonary Services [address] [place] [address] Riki Jackman MD Discharge Disposition: Home or Self Care (Routine Discharge) 01/22/2024 Scan HEALTH INFO SRVCS Scanned, Doc [facility] Generic Orders (SCAN) 01/22/2024 Orders Only [facility] Laboratory [address] [place] [address] Ej Schmid MD 01/22/2024 Travel 01/20/2024 5:55 PM MUCK HAULER - 01/20/2024 8:44 PM MUCK HAULER Emergency [facility] Emergency Room [address] [place] [address] Layne Taylor, Jonna Astorga MD Medical Problem (Pt came into ER by car alone. Pt states that she feels like her heart is beating really fast, chest tightness. Pt also states that she feels like she is having taking a deep breath. Pt states that she did take clonazpam 0.5 [employer]. Pt states that she does have anxiety/PTSD and these symptoms are not her normal symptoms of those.) Discharge Disposition: Home or Self Care (Routine Discharge) 01/20/2024 Travel 01/02/2024 10:20 AM MUCK HAULER Office Visit [address] [address] Dyan Jaeger, DAREN Cough (Productive); Sinus Pressure 01/02/[address] [address] Dyan Jaeger NP Medication Problem 01/02/2024 Travel 12/25/2023 MyChart Message Enc [facility] Medical Group Orthopedic & Sports Medicine - [place] [address] [place] [address] Jesús [facility] Provider nerve testing 12/25/2023 Orders Only [facility] Medical [facility] Orthopedic [facility] Sports [facility] - [place] [address] [place] [address] Gustavo Alvarado MD 12/24/2023 11:00 AM MUCK HAULER Office Visit [facility] Medical Group Multispecialty Care - [facility] [address] [facility] [address] [place] [address] Gustavo Alvarado MD Govindarajan, Raghav, MD EMG Testing (BUE-Cubital tunnel syndrome on right) 12/24/2023 Travel 12/18/2023 Telephone [facility] Medical [facility] - [address] [place] [address] Zeke Guzman MD Reschedule from Last 3 Months Immunizations Name Administration Dates Next Due Tdap (Generic) 04/26/2020 Family History Medical History Relation Comments Cancer Maternal Aunt Colon cancer Breast Cancer Mother CHF Mother Cancer Mother Breast cancer Dementia Mother Heart Disease Mother Atrial fibrillat ion Stroke Mother afib Mother Relation Status Comments Maternal Aunt Mother Social History Tobacco Use Types Packs/Day Years Used Date Smoking Tobacco: Former Cigarettes 0.3 7.5 1 03/09/1986 - 07/07/1994 Smokeless Tobacco: Never Tobacco Cessation:Counseling Given: No Alcohol Use Standard Drinks/Week Comments Not Currently 0 (1 standard drink = 0.6 oz pur e alcohol) rarely AUDIT-C Answer Date Recorded Frequency of Alcohol Consumption Monthly or less 07/07/2018 Average Number of Drinks Not on file 019 Frequency of Binge Drinking Not on file 06/19 PHQ-2 Answer Date Recorded Patient Health Questionnaire-2 Score 0 03/07/2024 Comments No Sex and Gender Information Value Date Recorded Sex Assigned at Female 03/05/2024 8:18 AM MUCK HAULER Legal Sex Female 8:06 PM CDT Gender Identity Female 12/29/2021 4:00 PM MUCK HAULER Sexual Orientation Not on file Last Filed Vital Signs Vital Sign Reading Time Taken Comments Blood Pressure 155/96 03/07/2024 10:10 AM MUCK HAULER Pulse 113 03/07/2024 10:10 AM MUCK HAULER Temperature 35.7 ??C (96.2 ??F) 03/07/2024 1 0:10 AM MUCK HAULER Respiratory Rate 20 03/07/2024 10:1 0 AM MUCK HAULER Oxygen Saturation 97% 03/07/2024 10: 10 AM MUCK HAULER Inhaled Oxygen Concentration - - Weight 98.1 kg (216 lb 4 oz) 03/07/2024 10:10 AM MUCK HAULER Height 167.6 cm (5' 6 ) 03/07/2024 10:1 0 AM MUCK HAULER patient reported Body Mass Index 34.9 03/07/2024 10:10 AM MUCK HAULER Plan of Treatment Upcoming Encounters Date Type Department Care Team (Late st Contact Info) Description 03/20/2024 9:00 AM MUCK HAULER Appointment [facility] [address] [place] [address] Amna Dodson, PT [address] [place] [address] Gustavo Alvarado MD [address] [address] [place], [place] [address] [phone] Hector Harrison MD [address] [place] [address] Litzy Story, OT [address] [place], [place] [address] 03/26/2024 9:40 AM MUCK HAULER Office Visit [facility] Medical [facility] - [place] [address] [place], [place] [address] [phone] Hector Harrison MD [address] [place] [address] 03/30/2024 9:20 AM MUCK HAULER Office Visit [facility] Medical Group Multispecialty Care - [facility] [address] [facility] [place] [address] Riki Jackman MD [address] [facility] [address] [place] [address] Health Maintenance Due Date Last Done Comments Cervical Cancer Screening Pap Smear (Age 30 to 64) Every 3 Years 1971 Annual Physical 08/11/1974 Pneumococcal Vaccine: Pediatrics (0 to 5 Years) and At-Risk Patients (6 to 64 Years) (1 of 2 - PCV) 08/11/1977 Hepatitis C 08/11/1989 Hepatitis B Vaccines (1 of 3 - 19+ 3-dose series) 08/11/1990 Cervical Cancer Screening Pap with HPV Testing (Age 30 to 64) Every 5 Years 08/11/2001 Cervical Cancer Screening with HPV 08/11/2001 Zoster Vaccines (1 of 2) 08/11/2021 COVID-19 Vaccine (2 - season) 2023 05/20/2020 Influenza Adult (#1) 2023 Mammogram Screening 06/06/2025 06/07/2023, 02/06/2019, 01/23/2019, Additional history exists DTaP, Tdap and Td Vaccines (2 - Td or Tdap) 04/26/2030 04/26/2020 Colorectal Cancer Screening Colonoscopy (10 Years) 02/09/2032 02/08/2022, 02/08/2022 PHQ-2 (Physician Alpaugh) Completed 03/07/2024 Meningococcal B Vaccine Aged Out No l onger eligible based on patient's age to complete this topic Meningococcal Vaccine Aged Out No elli merlyn eligible based on patient's age to complete this topic RSV Immunizations Under 20 Months Aged Out No longer eligible based on patient's age to complete this topic Medical Devices Implanted Type Area Roll Handler Device Identifier Shelf Expiration Date Model / Serial / Lot Implant [place] [employer] Swivelock 4.75mm - [id number] Implanted:Qty : 3 on 06/26/2023 by Gustavo Alvarado MD at [facility] [place] Right: Shoulder [employer] [id number] 03/20/2027 [id number] / / [id number] Procedures Procedure Name Priority Date/Time Associated Diagnosis Comments MRI BRAIN WWO CON Routine 03/10/2024 9:0 9 AM MUCK HAULER Paresthesia of skin CTA HEAD+NECK STAT 02/17/2024 2:26 PM MUCK HAULER HC URINALYSIS AUTO W/O MICRO STAT 02/17/2024 11:50 AM MUCK HAULER MAGNESIUM STAT 02/17/2024 11:50 AM MUCK HAULER TSH W/REFLEX STAT 02/17/2024 11:50 AM MUCK HAULER COMPREHENSIVE METABOLIC PANEL STAT 02/17/2024 11:50 AM MUCK HAULER CBC W/DIFF AUTOMATED STAT 02/17/2024 11:50 AM MUCK HAULER POCT GLUCOSE - CRAFT DOCKED DEVICE Routine 02/17/2024 10:[address] HEAD WO CON STAT 02/15/2024 5:44 AM MUCK HAULER US THYROID Routine 02/07/2024 11:59 AM MUCK HAULER Disorder of thyroid, unspecified Abnormal weight gain COMPREHENSIVE METABOLIC PANEL Routine 02/06/2024 8:17 AM MUCK HAULER Disorder of thyroid, unspecified Abnormal weight gain Hypothyroidism CORTISOL, SALIVA Routine 02/06/2024 7:30 AM MUCK HAULER Disorder of thyroid, unspecified Abnormal weight gain Hypothyroidism CORTISOL, SALIVA Routine 02/05/2024 11:3 0 PM MUCK HAULER Disorder of thyroid, unspecified Abnormal weight gain Hypothyroidism CT SOFT TISSUE NECK WO CON STAT 02/04/2024 6:24 AM MUCK HAULER INSULIN,TOTAL Routine 01/31/2024 8:59 AM MUCK HAULER Disorder of thyroid, unspecified Abnormal weight gain COMPREHENSIVE METABOLIC PANEL Routine 01/31/2024 8:59 AM MUCK HAULER Disorder of thyroid, unspecified Abnormal weight gain THYROXINE, FREE (FT4) Routine 01/31/2024 8:59 AM MUCK HAULER Disorder of thyroid, unspecified Abnormal weight gain CT TEMP BONES WWO CON STAT 01/31/2024 2:[address] SINUS WO CON STAT 01/31/2024 2:01 AM MUCK HAULER CORTISOL FREE URINE 24 HR Routine 01/27/2024 7:35 AM MUCK HAULER Disease of thyroid gland Abnormal weight gain THYROID PEROXIDASE ANTIBODY Routine 01/22/2024 9:59 AM MUCK HAULER Disease of thyroid gland Abnormal weight gain THYROID STIM HORMONE TSH Routine 01/22/2024 9:59 AM MUCK HAULER Disease of thyroid gland Abnormal weight gain PULMONARY FUNCTION TEST Routine 01/22/2024 8:00 AM MUCK HAULER Simple chronic bronchitis (CMS/HCC HHS/HCC) SPIROMETRY GENERIC (SCAN ORDER) 01/22/2024 DRUG SCREEN RAPID STAT 01/20/2024 7:3 6 PM MUCK HAULER HC URINALYSIS AUTO W/O MICRO STAT 01/20/2024 7:36 PM MUCK HAULER XR CHEST PORTABLE STAT 01/20/2024 6:3 3 PM MUCK HAULER TSH W/REFLEX STAT 01/20/2024 6:26 PM MUCK HAULER TROPONIN, QUANT STAT 01/20/2024 6:26 PM MUCK HAULER COMPREHENSIVE METABOLIC PANEL STAT 01/20/2024 6:26 PM MUCK HAULER CBC W/DIFF AUTOMATED STAT 01/20/2024 6:26 PM MUCK HAULER ECG 12-LEAD STAT 01/20/2024 6:14 PM MUCK HAULER EMG Routine 12/24/2023 11:00 AM MUCK HAULER Cubital tunnel syndrome, right MG SCREENING W TRINY RAÚL DIGI Routine 06/07/2023 10:08 AM CDT Encounter for screening mammogram for malignant neoplasm of breast COLONOSCOPY Routine 02/08/2022 8:27 AM MUCK HAULER from Last 3 Months or Most Recently Relevant to Health Maintenance Results * MRI BRAIN WWO CON (03/10/2024 9:09 AM MUCK HAULER) Anatomical Region Laterality Modality Head Magnetic Resonan ce 03/10/2024 8:15 PM MUCK HAULER Impressions 03/10/2024 8:20 PM MUCK HAULER IMPRESSION: 1. No acute intracranial abnormalities identified. No intracranial mass, or abnormal enhancement, or acute infarct. 2. Few small scattered supratentorial white matter abnormalities, possibly due to small vessel disease, but nonspecific. Referred By: ARAVIND REDDING Interpreted By: Otoniel Jiménez MD, 03/10/2024 8:15 PM Narrative 03/10/2024 8:20 [place] [address] INDICATION: Paresthesias of skin. EXAMINATION: MRI brain with and without contrast. TECHNIQUE: Multiplanar and multisequence MRI images of the brain were obtained before and after administration of 20 mL Dotarem intravenously without adverse event. COMPARISON: MRI 11/08/2008. Head CT 02/07/2024. CTA 02/17/2024. FINDINGS: No diffusion restriction or evidence of acute infarct. No intracranial mass, mass effect, or midline shift. 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 The remainder of the postcontrast images reveal no definite abnormal enhancement elsewhere in the brain. There are a few patchy foci of FLAIR hyperintensity seen in the hemispheric white matter, possibly due to small vessel disease, but nonspecific. Mild prominence of the ventricles and extra-axial/subarachnoid spaces. No extra-axial collections. Proximal portions of the major intracranial arterial flow voids are patent. No hemorrhagic foci of susceptibility seen elsewhere. Craniocervical junction, sellar content, pineal region are unremarkable. Minimal fluid scattered mastoid air cells. Paranasal sinuses clear. Visualized orbits unremarkable. Procedure Note Otoniel Jiménez MD - 03/10/2024 [facility] [address] [place] [address] INDICATION: Paresthesias of skin. EXAMINATION: MRI brain with and without contrast. TECHNIQUE: Multiplanar and multisequence MRI images of the brain wereobtained before and after administration of 20 mL Dotarem intravenouslywithout adverse event. COMPARISON: MRI 11/08/2008. Head CT 02/07/2024. CTA 02/17/2024. FINDINGS: No diffusion restriction or evidence of acute infarct. No intracranialmass, mass effect, or midline shift. Incidentally noted frontal and rightcerebellar developmental venous anomalies associated cavernousmalformations. The remainder of the postcontrast images reveal no definiteabnormal enhancement elsewhere in the brain. There are a few patchy fociof FLAIR hyperintensity seen in the hemispheric white matter, possibly dueto small vessel disease, but nonspecific. Mild prominence of theventricles and extra-axial/subarachnoid spaces. No extra-axialcollections. Proximal portions of the major intracranial arterial flowvoids are patent. No hemorrhagic foci of susceptibility seen elsewhere.Craniocervical junction, sellar content, pineal region are unremarkable.Minimal fluid scattered mastoid air cells. Paranasal sinuses clear.Visualized orbits unremarkable. IMPRESSION: 1. No acute intracranial abnormalities identified. No intracranial mass,or abnormal enhancement, or acute infarct. 2. Few small scattered supratentorial white matter abnormalities, possiblydue to small vessel disease, but nonspecific. Referred By: ARAVIND REDDING Interpreted By: Otoniel Jiménez MD, 03/10/2024 8:15 PM Aravind Redding [facility] MRI Final Result * CTA HEAD+NECK (02/17/2024 2:26 PM MUCK HAULER) Anatomical Region Laterality Modality Head, Neck Computed Tomogra phy 02/17/2024 2:36 PM MUCK [facility]ULER Impressions 02/17/2024 2:45 PM [facility]ER IMPRESSION: 1. No definite large vessel intracranial arterial occlusion identified. 2. No hemodynamically significant stenosis in the neck. 3. Mild multifocal intracranial and extra cranial atherosclerotic disease, as detailed above. 4. Ascending aortic ectasia measuring at least 4 cm, incompletely imaged. Ordered By: JACQUELINE MÉNDEZ Interpreted By: Otoniel Jiménez MD, 02/17/2024 2:36 PM Narrative 02/17/2024 2:45 PM [facility]CK [facility] [address] [place], [place] [address] DATE: 02/17/2024 2:15 PM INDICATION: Left-sided tingling. Concern for stroke. EXAMINATION: CT angiography of the head and neck with contrast. TECHNIQUE: CT angiography of the head and neck were performed after uneventful intravenous administration of 80mL IOPAMIDOL 76 % IV SOLN. CT dose reduction techniques were utilized. Internal carotid stenosis measured according to NASCET criteria. Axial and 3-D/MIP images were reconstructed and reviewed. A dose lowering technique was used for this procedure, which may include, but is not limited to, dose reduction technique, automated exposure control, the use of iterative reconstruction, and ALARA (As Low As Reasonably Achievable) / Image Gently techniques. COMPARISON: None. FINDINGS: CTA NECK: Aorta and great vessel origins: Classic 3 vessel aortic arch origin anatomy. Mediastinal great vessels patent and without significant stenosis. Right carotid artery: Tiny curvilinear plaque or web noted within the carotid bulb. No significant stenosis. Vascular tortuosity. Left carotid artery: Minimal curvilinear plaque or web noted along the carotid bulb. No significant stenosis. Vascular tortuosity. Right vertebral artery: No significant stenosis. Left vertebral artery: No significant stenosis. CTA HEAD: Few atherosclerotic calcifications noted along the intracranial ICA segments, without significant stenosis. Proximal portions of the anterior and middle cerebral arteries are patent. Anterior communicating artery is patent. Posterior circulation is codominant. Basilar artery patent and without significant stenosis to the terminus. Partial configuration of the right [employer] with hypoplastic P1 segment and patent posterior communicating artery. Proximal portions of the posterior cerebral arteries, superior cerebellar arteries, and left PICA are patent. Right PICA may be supplied by relatively prominent right AICA branch, normal variant. Left posterior communicating artery not well-visualized Gross patency of the major dural venous sinuses. SOFT TISSUES: Postsurgical defect versus old fracture right parietal calvarium. Streak artifact from dental amalgam partially obscures assessment. Bilateral thyroid nodules measuring up to 1.3 cm on the right; no specific follow-up recommendations per ACR white paper guidelines. Ascending aortic ectasia, measuring at least 4 cm, incompletely imaged. Degenerative changes noted in the spine. Procedure Note Otoniel Jiménez MD - 02/17/2024 [facility] [address] [place], [place] [address] DATE: 02/17/2024 2:15 PM INDICATION: Left-sided tingling. Concern for stroke. EXAMINATION: CT angiography of the head and neck with contrast. TECHNIQUE: CT angiography of the head and neck were performed afteruneventful intravenous administration of 80mL IOPAMIDOL 76 % IV SOLN. CTdose reduction techniques were utilized. Internal carotid stenosismeasured according to NASCET criteria. Axial and 3-D/MIP images werereconstructed and reviewed. A dose lowering technique was used for this procedure, which may include,but is not limited to, dose reduction technique, automated exposurecontrol, the use of iterative reconstruction, and ALARA (As Low AsReasonably Achievable) / Image Gently techniques. COMPARISON: None. FINDINGS: CTA NECK: Aorta and great vessel origins: Classic 3 vessel aortic arch originanatomy. Mediastinal great vessels patent and without significantstenosis. Right carotid artery: Tiny curvilinear plaque or web noted within thecarotid bulb. No significant stenosis. Vascular tortuosity. Left carotid artery: Minimal curvilinear plaque or web noted along thecarotid bulb. No significant stenosis. Vascular tortuosity. Right vertebral artery: No significant stenosis. Left vertebral artery: No significant stenosis. CTA HEAD: Few atherosclerotic calcifications noted along the intracranial ICAsegments, without significant stenosis. Proximal portions of the anteriorand middle cerebral arteries are patent. Anterior communicating artery ispatent. Posterior circulation is codominant. Basilar artery patent and withoutsignificant stenosis to the terminus. Partial configuration of theright [employer]IED POWERPLANT MECH[employer]IC with hypoplastic P1 segment and patent posterior communicatingartery. Proximal portions of the posterior cerebral arteries, superiorcerebellar arteries, and left PICA are patent. Right PICA may be suppliedby relatively prominent right AICA branch, normal variant. Left posteriorcommunicating artery not well-visualized Gross patency of the major dural venous sinuses. SOFT TISSUES: Postsurgical defect versus old fracture right parietal calvarium. Streakartifact from dental amalgam partially obscures assessment. Bilateralthyroid nodules measuring up to 1.3 cm on the right; no specific follow-uprecommendations per ACR white paper guidelines. Ascending aortic ectasia,measuring at least 4 cm, incompletely imaged. Degenerative changes notedin the spine. IMPRESSION: 1. No definite large vessel intracranial arterial occlusion identified. 2. No hemodynamically significant stenosis in the neck. 3. Mild multifocal intracranial and extra cranial atherosclerotic disease,as detailed above. 4. Ascending aortic ectasia measuring at least 4 cm, incompletelyimaged. Ordered By: JACQUELINE MÉNDEZ Interpreted By: Otoniel Jiménez MD, 02/17/2024 2:[address] Final Result * TSH W/REFLEX (02/17/2024 11:50 AM MUCK [facility]ULER) Only the most recent of2 resultswithin the time period is included. TSH 2.420 0.358 - 3.74 uIU/ML 02/17/2024 12:40 PM [facility]ULER [facility] Comment: HIGH DOSES OF BIOTIN MAY INTERFERE WITH THIS TEST RESULT. CORRELATION TO CLINICAL HISTORY AND PRESENTATION RECOMMENDED. FREE T4 NOT INDICATED 02/17/2024 11:5 0 AM [facility]ER [facility] Final Resul t [facility] [address] [place] [address], [place] [phone] * (ABNORMAL) URINALYSIS (02/17/2024 11:50 AM MUCK HAULER) Only the most recent of2 resultswithin the time period is included. SPECIMEN TYPE URINE CLEAN CATCH 02/17/2024 11:52 AM [facility] COLOR (U) COLORLESS 02/17/2024 12:11 PM [facility] TRANSPARENCY CLEAR 02/17/2024 12:11 PM [facility] SPECIFIC GRAVITY (U) 1.002 1.001 - 1.030 02/17/2024 12:11 PM [facility] U PH 6.5 5.0 - 9.0 02/17/2024 12:11 PM [facility] LEUKOCYTES (U) NEGATIVE NEGATIVE 02/17/2024 12:11 PM [facility] NITRITES NEGATIVE NEGATIVE 02/17/2024 12:11 PM [facility] PROTEIN RANDOM (U) NEGATIVE <30 MG/DL 02/17/2024 12:11 PM [facility] GLUCOSE (U) NORMAL NORMAL MG/DL 02/17/2024 12:11 PM [facility] KETONES MG/DL (U) NEGATIVE NEGATIVE MG/DL 02/17/2024 12:11 PM [facility] UROBILINOGEN NORMAL NORMAL MG/DL 02/17/2024 12:11 PM [facility] BILIRUBIN (U) NEGATIVE NEGATIVE MG/DL 02/17/2024 12:11 PM [facility] BLOOD (U) 2+(A) NEGATIVE 02/17/2024 12:11 PM [facility] WBC/HPF 1 <6 /HPF 02/17/2024 12:11 PM [facility] RBC/HPF <1 <6 /HPF 02/17/2024 12:11 PM [facility] URINE SPECIMEN OBTAINED BY CLEAN CATCH PROCEDURE / Unknown 02/17/2024 11:50 AM MUCK [facility]ULER us Neftaly [facility] URINE ORDERABLES Final Resu lt [facility] [address] [place] [address], [place] [phone] * (ABNORMAL) COMPREHENSIVE METABOLIC PANEL (02/17/2024 11:50 AM MUCK [facility]ULER) Only the most recent of4 resultswithin the time period is included. [facility] GLUCOSE 113(H) 70 - 99 MG/DL 02/17/2024 12:40 PM [facility]ER [facility] BUN 10 7 - 18 MG/DL 02/17/2024 12:40 PM [facility] CREATININE S/P/B 0.94 0.55 - 1.02 MG/DL 02/17/2024 12:40 PM [facility] SODIUM S/P/B 136 136 - 145 MMOL/L 02/17/2024 12:40 PM [facility] POTASSIUM S/P/B 3.7 3.5 - 5.1 MMOL/L 02/17/2024 12:40 PM [facility] CHLORIDE S/P/B 106 97 - 115 MMOL/L 02/17/2024 12:40 PM [facility] CO2 25.6 21 - 32 MMOL/L 02/17/2024 12:40 PM [facility] CALCIUM S/P/B 9.8 8.5 - 10.1 MG/DL 02/17/2024 12:40 PM [facility] BILIRUBIN TOTAL S/P/B 0.3 0.2 - 1.2 MG/DL 02/17/2024 12:40 PM [facility] Comment: THIS ASSAY IS NOT RECOMMENDED FOR PATIENTS UNDERGOING TREATMENT WITH ELTROMBOPAG DUE TO THE POTENTIAL FOR FALSELY ELEVATED RESULTS. TOTAL PROTEIN S/P/B 8.2 6.4 - 8.2 G/DL 02/17/2024 12:40 PM [facility]ER [facility] ALBUMIN S/P/B 4.0 3.4 - 5.0 G/DL 02/17/2024 12:40 PM [facility] AST 14(L) 15 - 37 U/L 02/17/2024 12:40 PM [facility]ER [facility] ALT 25 14 - 55 U/L 02/17/2024 12:40 PM [facility]ER [facility] ALKALINE PHOSPHATASE S/P/B 84 50 - 136 U/L 02/17/2024 12:40 PM [facility] ANION GAP 4.4 2 - 10 MMOL/L 02/17/2024 12:40 PM [facility] BUN CREATININE RATIO 10.7 6 - 26 02/17/2024 12:40 PM [facility] A/G RATIO 1.0 1.0 - 2.0 RATIO 02/17/2024 12:40 PM [facility] GFR ESTIMATE 73(L) >90 ML/MIN/1.7 3 M2 02/17/2024 12:40 PM [facility] Comment: NOTE: eGFR is not calculated for patients <18 years of age or gender unknown. This is an estimated GFR calculation using the new CKD EPI creatinine equation without race and so does not require a correction factor for race. This estimated GFR should not be used for calculating drug doses. 02/17/2024 11:5 0 AM [facility]ER us Ne[facility] Final Resul t [facility] [address] [place] [address], [place] [phone] * CBC W/DIFF AUTOMATED (02/17/2024 11:50 AM MUCK [facility]ULER) Only the most recent of2 resultswithin the time period is included. WBC 9.39 4.5 - 11.0 x10'3/uL 02/17/2024 12:11 PM [facility] RBC 5.31 4.20 - 5.40 x10'6/uL 02/17/2024 12:11 PM [facility] HGB 15.2 12.0 - 16.0 G/DL 02/17/2024 12:11 PM [facility] HCT 46.0 38.0 - 48.0 % 02/17/2024 12:11 PM [facility] MCV 86.6 81.0 - 99.0 FL 02/17/2024 12:11 PM [facility] MCH 28.6 27.0 - 31.0 PG 02/17/2024 12:11 PM [facility] MCHC 33.0 32.0 - 36.0 G/DL 02/17/2024 12:11 PM [facility] RDW 13.1 11.5 - 14.5 % 02/17/2024 12:11 PM [facility] PLT 378 130 - 400 x10'3/uL 02/17/2024 12:11 PM [facility] MPV 9.6 9.3 - 12.2 FL 02/17/2024 12:11 PM [facility] DIFFERENTIAL TYPE AUTOMATED DIFFERENTIAL 02/17/2024 12:11 PM [facility] NEUTROPHILS % 52.0 % 02/17/2024 12:11 PM [facility] LYMPHOCYTES % 40.4 % 02/17/2024 12:11 PM [facility] MONOCYTES % 5.9 % 02/17/2024 12:11 PM [facility] EOSINOPHILS 1.0 % 02/17/2024 12:11 PM [facility] BASOPHILS 0.4 % 02/17/2024 12:11 PM [facility] IMMATURE GRANS % 0.3 % 02/17/20 12:11 PM [facility] ABS. NEUTROPHILS 4.89 1.80 - 7.70 x10'3/uL 02/17/2024 12:11 PM [facility] ABS. LYMPHOCYTES 3.79 1.00 - 4.80 x10'3/uL 02/17/2024 12:11 PM [facility] ABS. MONOCYTES 0.55 0.24 - 0.86 x10'3/uL 02/17/2024 12:11 PM [facility] ABS. EOSINOPHILS 0.09 0.04 - 0.36 x10'3/uL 02/17/2024 12:11 PM [facility] ABS. BASOPHILS 0.04 0.01 - 0.08 x10'3/uL 02/17/2024 12:11 PM [facility] ABS. IMMATURE GRANULOCYTES 0.03 0.00 - 0.49 x10'3/uL 02/17/2024 12:11 PM [facility] 02/17/2024 11:5 0 AM [facility]ER us [facility] Final Resul t [facility] [address] [place] [address], * MAGNESIUM (02/17/2024 11:50 AM MUCK HAULER) MAGNESIUM 2.4 1.8 - 2.4 MG/DL 02/17/2024 12:40 PM [facility]ER [facility] 02/17/2024 11:5 0 AM [facility]ER [facility] Final Resul t [facility] [address] [place] [address], [place] [phone] * (ABNORMAL) POCT glucose (02/17/2024 10:37 AM MUCK HAULER) [facility] GLUCOSE POC 107(H) 70 - 99 mg/dL 02/17/2024 10:38 AM [facility]ER [facility] 02/17/2024 10:3 7 AM MUCK HAULER Attending Physician Emergency MD POCT ORDERABLES - DEVICE Final Result Performing Organization Address City/[facility]/ZIP Co de Phone Number [facility] [address] [place] [address], [place] [phone] * CT HEAD WO CON (02/15/2024 5:44 AM MUCK HAULER) Anatomical Region Laterality Modality Head Computed Tomogra phy 02/15/2024 5:36 AM [facility]CK [facility]ULER Impressions 02/15/2024 5:45 AM [facility]ER IMPRESSION: 1. Mild age-appropriate atrophy with minimal nonspecific chronic deep cerebral white matter microvascular disease in the cerebral hemispheres. 2. Stable partially empty sella, likely a developmental variant, with intracranial hypertension less likely. ??Please correlate clinically. This CT exam was performed using one or more of the following dose reduction techniques: ??automated exposure control, adjustment of the mA and/or kV according to patient size, and/or use of iterative reconstruction technique. Referred By: ?? Interpreted By: Zayra Joyner MD, 02/15/2024 5:36 AM Narrative 02/15/2024 5:45 AM [facility]ER [facility] [address] [place] [address] EXAMINATION: ??CT Head without Contrast, Axial Imaging with 2-D Coronal and Sagittal Reconstruction. INDICATION: Dizziness.. COMPARISON: CT head without contrast 06/28/2006.. FINDINGS: ??No mass, midline shift, intracranial hemorrhage, areas of acute macrovascular ischemia, or acute osseous abnormality. ??Mild age-appropriate atrophy. ??Stable partially empty sella. ??No extra-axial fluid collections. Ventricles and sulci are normal for age. Minimal nonspecific patchy hypodensity in the periventricular and deep cerebral white matter in bilateral cerebral hemispheres without edema or mass effect, written minimal chronic white matter or vascular disease. Visualized orbits are unremarkable. ??Mild chronic mucosal thickening bilateral maxillary and left sphenoid sinuses and minimally in a few ethmoid air cells. ??No significant disease in the partially visualized paranasal sinuses or mastoid air cells. Procedure Note Zayra Joyner MD - 02/15/2024 [facility] [address] [place] [address] EXAMINATION: CT Head without Contrast, Axial Imaging with 2-D Coronal andSagittal Reconstruction. INDICATION: Dizziness.. COMPARISON: CT head without contrast 06/28/2006.. FINDINGS: No mass, midline shift, intracranial hemorrhage, areas of acutemacrovascular ischemia, or acute osseous abnormality. Mildage-appropriate atrophy. Stable partially empty sella. No extra-axialfluid collections. Ventricles and sulci are normal for age. Minimalnonspecific patchy hypodensity in the periventricular and deep cerebralwhite matter in bilateral cerebral hemispheres without edema or masseffect, written minimal chronic white matter or vascular disease.Visualized orbits are unremarkable. Mild chronic mucosal thickeningbilateral maxillary and left sphenoid sinuses and minimally in a fewethmoid air cells. No significant disease in the partially visualizedparanasal sinuses or mastoid air cells. IMPRESSION: 1. Mild age-appropriate atrophy with minimal nonspecific chronic deepcerebral white matter microvascular disease in the cerebral hemispheres. 2. Stable partially empty sella, likely a developmental variant, withintracranial hypertension less likely. Please correlate clinically. This CT exam was performed using one or more of the following dosereduction techniques: automated exposure control, adjustment of the mAand/or kV according to patient size, and/or use of iterativereconstruction technique. Referred By: Interpreted By: Zayra Joyner MD, 02/15/2024 5:36 AM Jonna Durham MD CT Final Result * US THYROID (02/07/2024 11:59 AM MUCK HAULER) Anatomical Region Laterality Modality Neck Ultrasound 02/10/2024 8:56 AM [facility]ER Impressions 02/10/2024 9:00 AM [facility]ER IMPRESSION: TIRADS assessment of thyroid nodules: ?Nodule 1, right : This may reflect a pseudonodule given the heterogeneous echotexture of the thyroid gland. ACR TI-RADS TR4. Size: 1.4 cm. Recommend: Follow-up ultrasound in 1 year Other non-TIRADS findings: Heterogeneous thyroid gland which can be seen in the clinical setting of thyroiditis. ----- -- ACR TI-RADS recommendations TR5 (?7 points) - FNA if ? 1cm, follow-up annually if ? 0.5 cm TR4 (4-6 points) - FNA if ? 1.5 cm, follow-up at 1, 2, 3, and 5 years if ? 1.0 cm TR3 (3 points)- FNA if ? 2.5cm, follow-up at 1, 3, and 5 years if ? 1.5 cm TR2 (2 points) & TR1 (0 points) - No FNA or follow-up * ACR TI-RADS recommends that no more than two nodules with the highest ACR TI- RADS total point should be biopsied and no more than four nodules should be followed. TI-RADS recommendations are based on TI-RADS level. Management decisions such as whether to perform FNA and whether to follow up a nodule may differ from the TI- RADS recommendation based on clinician judgement, patient preference, risk factors for thyroid cancer, comorbidities, life expectancy and other considerations. Ordered By: EJ SCHMID Interpreted By: Mauricio Barr MD, 02/10/2024 8:56 AM Narrative 02/10/2024 9:00 AM [facility]ER [facility] [address] [place] [address] Thyroid Ultrasound Indication: abnormal weight gain, disorder of thyroid ?? Comparison: No prior thyroid ultrasounds available for comparison. Technique: [place]-scale and color Doppler images of the thyroid gland were obtained. Findings: RIGHT LOBE: The right thyroid lobe is heterogeneous in echotexture. The right lobe measures 4.0 x 1.4 x 1.6 cm. Number of nodules which are TI-RADS scored for the right lobe: 1 LEFT LOBE: The left thyroid lobe is heterogeneous in echotexture. The left lobe measures 3.2 x 1.1 x 1.7 cm. Number of nodules which are TI-RADS scored for the left lobe: 0 ISTHMUS: The isthmus measures 0.3 cm in thickness. Number of nodules which are TI-RADS scored for the isthmus: 0 Lymph nodes: No suspicious cervical adenopathy. Nodule 1: ?? - Size: 1.3 x 1.1 x 1.4 cm. This may reflect a pseudonodule given the heterogeneous echotexture. ?? - Location: right thyroid. ?? - Composition: solid or almost completely solid (2) ?? - Echogenicity: Heterogeneously hypoechoic (2) ?? - Shape: [id number]-fipy (0) ?? - Margins: ill-defined (0) ?? - Echogenic foci: none (0) ACR TI-RADS total points: 4 ACR TI-RADS category: TR4 Small focal calcification in the left thyroid gland measuring 3 x 5 mm. No specific follow-up is required. Procedure Note Mauricio Barr MD - 02/10/2024 [facility] [address] [place] [address] Thyroid Ultrasound Indication: abnormal weight gain, disorder of thyroid Comparison: No prior thyroid ultrasounds available for comparison. Technique: [place]-scale and color Doppler images of the thyroid gland wereobtained. Findings: RIGHT LOBE: The right thyroid lobe is heterogeneous in echotexture. The right lobemeasures 4.0 x 1.4 x 1.6 cm. Number of nodules which are TI-RADS scoredfor the right lobe: 1 LEFT LOBE: The left thyroid lobe is heterogeneous in echotexture. The left lobemeasures 3.2 x 1.1 x 1.7 cm. Number of nodules which are TI-RADS scoredfor the left lobe: 0 ISTHMUS: The isthmus measures 0.3 cm in thickness. Number of nodules which areTI-RADS scored for the isthmus: 0 Lymph nodes: No suspicious cervical adenopathy. Nodule 1: - Size: 1.3 x 1.1 x 1.4 cm. This may reflect a pseudonodule given theheterogeneous echotexture. - Location: right thyroid. - Composition: solid or almost completely solid (2) - Echogenicity: Heterogeneously hypoechoic (2) - Shape: [id number] (0) - Margins: ill-defined (0) - Echogenic foci: none (0) ACR TI-RADS total points: 4 ACR TI-RADS category: TR4 Small focal calcification in the left thyroid gland measuring 3 x 5 mm. Nospecific follow-up is required. IMPRESSION: TIRADS assessment of thyroid nodules: Nodule 1, right : This may reflect a pseudonodule given theheterogeneous echotexture of the thyroid gland. ACR TI-RADS TR4. Size: 1.4cm. Recommend: Follow-up ultrasound in 1 year Other non-TIRADS findings: Heterogeneous thyroid gland which can be seenin the clinical setting of thyroiditis. ----- -- ACR TI-RADS recommendations TR5 (?7 points) - FNA if ? 1cm, follow-up annually if ? 0.5 cm TR4 (4-6 points) - FNA if ? 1.5 cm, follow-up at 1, 2, 3, and 5 years if ?1.0 cm TR3 (3 points)- FNA if ? 2.5cm, follow-up at 1, 3, and 5 years if ? 1.5 cm TR2 (2 points) & TR1 (0 points) - No FNA or follow-up * ACR TI-RADS recommends that no more than two nodules with the highestACR TI- RADS total point should be biopsied and no more than four nodulesshould be followed. TI-RADS recommendations are based on TI-RADS level. Managementdecisions such as whether to perform FNA and whether to follow up a nodulemay differ from the TI- RADS recommendation based on clinician judgement,patient preference, risk factors for thyroid cancer, comorbidities, lifeexpectancy and other considerations. Ordered By: EJ SCHMID Interpreted By: Mauricio Barr MD, 02/10/2024 8:56 AM Ej Schmid MD ULTRASOUND Final Result * CORTISOL, SALIVA (02/06/2024 7:30 AM MUCK HAULER) Only the most recent of2 resultswithin the time period is included. CORTISOL SALIVA 0.20 mcg/dL 4 7:37 PM MUCK [facility]ULER [employer] [facility] Comment: 8-10 AM: ?0.04-0.56 mcg/dL noon-2 PM: ?< OR = 0.21 mcg/dL 4-6 PM: ? < OR = 0.15 mcg/dL 10 PM-1 AM: ?? < OR = 0.09 mcg/dL This test was developed and its analytical performance characteristics have been determined by [facility]. It has not been cleared or approved by FDA. This assay has been validated pursuant to the CLIA regulations and is used for clinical purposes. Test performed by [facility] ? [id number], ? [place] [address] ? Computational Sciences Professor: Shannan Tobar MD,PHD,[place]OLIS Test Reported by [facility], [facility], [address] [place], [place] Kamran Wood M.D., Ph.D., Director of Laboratories , [place] [id number] SALIVA / Unknown 02/06/2024 7:30 AM MUCK [facility]ULER Ej Schmid MD LABORATORY Final Result Performing Organization Address City/State/[facility] Co ri Phone Number [employer] [facility] [address] [place], [place] , * CT SOFT TISSUE NECK WO CON (02/04/2024 6:24 AM MUCK HAULER) Anatomical Region Laterality Modality Neck Computed Tomogra phy 02/04/2024 6:45 AM MUCK [facility]ULER Impressions 02/04/2024 6:56 AM [facility]ULER IMPRESSION: 1. ??Narrowing of the glottic airway is likely related to Valsalva maneuver during imaging, with the airway and soft tissues of the pharynx and larynx are otherwise unremarkable. 2. ??Dystrophic coarse calcification in the left lobe of thyroid; no follow-up imaging is recommended. 3. ??Chronic dental disease as noted above. 5. ?? heart of this CT temporal bone study of 01/31/2024 regarding the temporal bone findings This CT exam was performed using one or more of the following dose reduction techniques: ??automated exposure control, adjustment of the mA and/or kV according to patient size, and/or use of iterative reconstruction technique. Referred By: ?? Interpreted By: Zayra Joyner MD, 02/04/2024 6:45 AM Narrative 02/04/2024 6:56 AM [facility]ULER [facility] [address] [place] [address]: [address] Neck without intravenous contrast,, Axial Imaging with 2-D Coronal and Sagittal Reconstructions. INDICATION: Neck swelling. COMPARISON: None FINDINGS: Streak artifact from dental amalgam limits evaluation of the adjacent soft tissues and adjacent oral cavity. ??Incidental caries are noted. ??A few missing were extracted teeth are noted. ??No mass lesions or areas of abnormal enhancement are identified. ??No pathologic adenopathy in the neck. ??Narrowing of the glottic airway is likely related to Valsalva maneuver during imaging. ??Soft tissues of the pharynx and larynx are unremarkable. ??The airway is patent and symmetric. The parotid and submandibular glands are unremarkable. ??Dystrophic calcification in the left lobe of thyroid with the thyroid gland otherwise unremarkable; no follow-up imaging is warranted. ??The thyroid gland is normal. No acute osseous abnormality. ??Partially included upper lungs are clear. Procedure Note Zayra Joyner MD - 02/04/2024 [facility] [address] [place] [address] EXAMINATION: CT Neck without intravenous contrast,, Axial Imaging with 2- DCoronal and Sagittal Reconstructions. INDICATION: Neck swelling. COMPARISON: None FINDINGS: Streak artifact from dental amalgam limits evaluation of theadjacent soft tissues and adjacent oral cavity. Incidental caries arenoted. A few missing were extracted teeth are noted. No mass lesions orareas of abnormal enhancement are identified. No pathologic adenopathy inthe neck. Narrowing of the glottic airway is likely related to Valsalvamaneuver during imaging. Soft tissues of the pharynx and larynx areunremarkable. The airway is patent and symmetric. The parotid andsubmandibular glands are unremarkable. Dystrophic calcification in theleft lobe of thyroid with the thyroid gland otherwise unremarkable; nofollow-up imaging is warranted. The thyroid gland is normal. No acuteosseous abnormality. Partially included upper lungs are clear. IMPRESSION: 1. Narrowing of the glottic airway is likely related to Valsalva maneuverduring imaging, with the airway and soft tissues of the pharynx and larynxare otherwise unremarkable. 2. Dystrophic coarse calcification in the left lobe of thyroid; nofollow-up imaging is recommended. 3. Chronic dental disease as noted above. 5. heart of this CT temporal bone study of 01/31/2024 regarding thetemporal bone findings This CT exam was performed using one or more of the following dosereduction techniques: automated exposure control, adjustment of the mAand/or kV according to patient size, and/or use of iterativereconstruction technique. Referred By: Interpreted By: Zayra Joyner MD, 02/04/2024 6:45 AM Jonna Durham MD CT Final Result * THYROXINE, FREE (FT4) (01/31/2024 8:59 AM [facility]) Pathologist [facility] FREE T4 1.00 0.76 - 1.46 NG/DL 01/31/2024 12:[address] [facility] 01/31/2024 8:59 AM [facility] Ej Schmid MD LABORATORY Final Result [facility] [address] [place] [address], * INSULIN,TOTAL (01/31/2024 8:59 AM [facility]ER) Pathologist [facility] INSULIN 6.1 <=18.4 uIU/mL 02/04/2024 1:37 PM [facility] [employer] [employer] TODD LINCOLN Comment: Risk: Optimal ??< or = 18.4 Moderate ? NA High ? >18.4 Adult cardiovascular event risk category cut points (optimal, moderate, high) are based on Insulin Reference interval studies performed at [facility] in 2022. Test Performed by Jammie Mendez, [facility], [address] [place], [place] Kamran Wood M.D., Ph.D., Director of Laboratories , [place] [id number] 01/31/2024 8:59 AM [facility] Ej Schmid MD LABORATORY Final Result [facility] [address] [place] [address], * CT TEMP BONES WWO CON (01/31/2024 2:01 AM [facility]CK [facility]ER) Anatomical Region Laterality Modality Head Computed Tomogra phy 01/31/2024 2:16 AM [facility] Impressions 01/31/2024 2:28 AM [facility] IMPRESSION: 1. ??Dehiscence/thinning of the osseous covering overlying the left superior semicircular canal. 2. ??Trace right mastoid air cell fluid. Otherwise normal appearance of the temporal bones. 3. ??Mucosal thickening involving the right maxillary sinus near the right maxillary infundibulum contributing to obstruction. Mucosal thickening contributing to obstruction of the sphenoid ostia. Otherwise well-aerated paranasal sinuses. Referred By: ?? Interpreted By: Blake Davis MD, 01/31/2024 2:16 AM Narrative 01/31/2024 2:28 AM [facility] [address] [place] [address] EXAMINATION: CT TEMP BONES WWO CON, CT SINUS WO CON, 01/31/2024 2:16 AM TECHNIQUE: Computed tomographic images of the paranasal sinuses were obtained without intravenous contrast. ??Additional computed tomographic images of the temporal bones were obtained before and after the administration of 80 mL of Isovue 370 injected through the IV, without evidence of adverse reaction. Additional coronal and sagittal reformatted images were generated. A dose lowering technique was used for this procedure, which may include, but is not limited to, dose reduction technique, automated exposure control, the use of iterative reconstruction, and ALARA (As Low As Reasonably Achievable) / Image Gently techniques. HISTORY: Right ear pain for one month, sinus infection. ??History of skull fracture, vestibular dysfunction COMPARISON: MRI brain 11/08/2008 FINDINGS: CT PARANASAL SINUSES: Mucous retention cyst within left maxillary sinus. ??Mucosal thickening involving the right maxillary sinus near the right maxillary infundibulum contributing to obstruction. ??Paranasal sinuses are otherwise well-aerated. ??Left maxillary infundibulum is patent. ??Frontal sinus drainage pathways are patent. ??Mucosal thickening contributing to obstruction of the sphenoid ostia. ??Ethmoidal drainage pathways are patent. CT RIGHT TEMPORAL BONES: Right the external auditory canal appears normal. ??Middle ear is well-aerated. ??The ossicular chain is intact. ??Trace right mastoid air cell fluid. ??The tegmen tympani and tegmen mastoideum are intact. ??Internal auditory canal, cochlea and semicircular canals appear normal. ??Vestibular aqueduct appears normal. ??Carotid canal and jugular foramen appear normal. CT LEFT TEMPORAL BONES: The external auditory canal appears normal. ??Middle ear and mastoid air cells are well-aerated. ??The ossicular chain is intact. ??The tegmen tympani and tegmen mastoideum are intact. ??There is dehiscence/thinning of the osseous covering overlying the left superior semicircular canal (seen on series 13 image 85). ??Internal auditory canal, cochlea and semicircular canals appear normal otherwise. ??Vestibular aqueduct appears normal. ??Carotid canal and jugular foramen appear normal. Procedure Note Blake Davis MD - 01/31/2024 [facility] [address] [place] [address] EXAMINATION: CT TEMP BONES WWO CON, CT SINUS WO CON, 01/31/2024 2:16 AM TECHNIQUE: Computed tomographic images of the paranasal sinuses wereobtained without intravenous contrast. Additional computed tomographicimages of the temporal bones were obtained before and after theadministration of 80 mL of Isovue 370 injected through the IV, withoutevidence of adverse reaction. Additional coronal and sagittal reformattedimages were generated. A dose lowering technique was used for thisprocedure, which may include, but is not limited to, dose reductiontechnique, automated exposure control, the use of iterativereconstruction, and ALARA (As Low As Reasonably Achievable) / Image Gentlytechniques. HISTORY: Right ear pain for one month, sinus infection. History of skullfracture, vestibular dysfunction COMPARISON: MRI brain 11/08/2008 FINDINGS: CT PARANASAL SINUSES: Mucous retention cyst within left maxillary sinus.Mucosal thickening involving the right maxillary sinus near the rightmaxillary infundibulum contributing to obstruction. Paranasal sinuses areotherwise well-aerated. Left maxillary infundibulum is patent. Frontalsinus drainage pathways are patent. Mucosal thickening contributing toobstruction of the sphenoid ostia. Ethmoidal drainage pathways arepatent. CT RIGHT TEMPORAL BONES: Right the external auditory canal appears normal.Middle ear is well-aerated. The ossicular chain is intact. Trace rightmastoid air cell fluid. The tegmen tympani and tegmen mastoideum areintact. Internal auditory canal, cochlea and semicircular canals appearnormal. Vestibular aqueduct appears normal. Carotid canal and jugularforamen appear normal. CT LEFT TEMPORAL BONES: The external auditory canal appears normal.Middle ear and mastoid air cells are well-aerated. The ossicular chain isintact. The tegmen tympani and tegmen mastoideum are intact. There isdehiscence/thinning of the osseous covering overlying the left superiorsemicircular canal (seen on series 13 image 85). Internal auditory canal,cochlea and semicircular canals appear normal otherwise. Vestibularaqueduct appears normal. Carotid canal and jugular foramen appearnormal. IMPRESSION: 1. Dehiscence/thinning of the osseous covering overlying the leftsuperior semicircular canal. 2. Trace right mastoid air cell fluid. Otherwise normal appearance of thetemporal bones. 3. Mucosal thickening involving the right maxillary sinus near the rightmaxillary infundibulum contributing to obstruction. Mucosal thickeningcontributing to obstruction of the sphenoid ostia. Otherwise well-aeratedparanasal sinuses. Referred By: Interpreted By: Blake Davis MD, 01/31/2024 2:16 AM us Keon Swartz MD CT Fi nal Result * CT SINUS WO CON (01/31/2024 2:01 AM [facility]ER) Anatomical Region Laterality Modality Facial Computed Tomogra phy 01/31/2024 2:16 AM [facility]ER Impressions 01/31/2024 2:28 AM [facility] IMPRESSION: 1. ??Dehiscence/thinning of the osseous covering overlying the left superior semicircular canal. 2. ??Trace right mastoid air cell fluid. Otherwise normal appearance of the temporal bones. 3. ??Mucosal thickening involving the right maxillary sinus near the right maxillary infundibulum contributing to obstruction. Mucosal thickening contributing to obstruction of the sphenoid ostia. Otherwise well-aerated paranasal sinuses. Referred By: ?? Interpreted By: Blake Davis MD, 01/31/2024 2:16 AM Narrative 01/31/2024 2:28 [place] [address] EXAMINATION: CT TEMP BONES WWO CON, CT SINUS WO CON, 01/31/2024 2:16 AM TECHNIQUE: Computed tomographic images of the paranasal sinuses were obtained without intravenous contrast. ??Additional computed tomographic images of the temporal bones were obtained before and after the administration of 80 mL of Isovue 370 injected through the IV, without evidence of adverse reaction. Additional coronal and sagittal reformatted images were generated. A dose lowering technique was used for this procedure, which may include, but is not limited to, dose reduction technique, automated exposure control, the use of iterative reconstruction, and ALARA (As Low As Reasonably Achievable) / Image Gently techniques. HISTORY: Right ear pain for one month, sinus infection. ??History of skull fracture, vestibular dysfunction COMPARISON: MRI brain 11/08/2008 FINDINGS: CT PARANASAL SINUSES: Mucous retention cyst within left maxillary sinus. ??Mucosal thickening involving the right maxillary sinus near the right maxillary infundibulum contributing to obstruction. ??Paranasal sinuses are otherwise well-aerated. ??Left maxillary infundibulum is patent. ??Frontal sinus drainage pathways are patent. ??Mucosal thickening contributing to obstruction of the sphenoid ostia. ??Ethmoidal drainage pathways are patent. CT RIGHT TEMPORAL BONES: Right the external auditory canal appears normal. ??Middle ear is well-aerated. ??The ossicular chain is intact. ??Trace right mastoid air cell fluid. ??The tegmen tympani and tegmen mastoideum are intact. ??Internal auditory canal, cochlea and semicircular canals appear normal. ??Vestibular aqueduct appears normal. ??Carotid canal and jugular foramen appear normal. CT LEFT TEMPORAL BONES: The external auditory canal appears normal. ??Middle ear and mastoid air cells are well-aerated. ??The ossicular chain is intact. ??The tegmen tympani and tegmen mastoideum are intact. ??There is dehiscence/thinning of the osseous covering overlying the left superior semicircular canal (seen on series 13 image 85). ??Internal auditory canal, cochlea and semicircular canals appear normal otherwise. ??Vestibular aqueduct appears normal. ??Carotid canal and jugular foramen appear normal. Procedure Note Blake Davis MD - 01/31/2024 [facility] [address] [place] [address] EXAMINATION: CT TEMP BONES WWO CON, CT SINUS WO CON, 01/31/2024 2:16 AM TECHNIQUE: Computed tomographic images of the paranasal sinuses wereobtained without intravenous contrast. Additional computed tomographicimages of the temporal bones were obtained before and after theadministration of 80 mL of Isovue 370 injected through the IV, withoutevidence of adverse reaction. Additional coronal and sagittal reformattedimages were generated. A dose lowering technique was used for thisprocedure, which may include, but is not limited to, dose reductiontechnique, automated exposure control, the use of iterativereconstruction, and ALARA (As Low As Reasonably Achievable) / Image Gentlytechniques. HISTORY: Right ear pain for one month, sinus infection. History of skullfracture, vestibular dysfunction COMPARISON: MRI brain 11/08/2008 FINDINGS: CT PARANASAL SINUSES: Mucous retention cyst within left maxillary sinus.Mucosal thickening involving the right maxillary sinus near the rightmaxillary infundibulum contributing to obstruction. Paranasal sinuses areotherwise well-aerated. Left maxillary infundibulum is patent. Frontalsinus drainage pathways are patent. Mucosal thickening contributing toobstruction of the sphenoid ostia. Ethmoidal drainage pathways arepatent. CT RIGHT TEMPORAL BONES: Right the external auditory canal appears normal.Middle ear is well-aerated. The ossicular chain is intact. Trace rightmastoid air cell fluid. The tegmen tympani and tegmen mastoideum areintact. Internal auditory canal, cochlea and semicircular canals appearnormal. Vestibular aqueduct appears normal. Carotid canal and jugularforamen appear normal. CT LEFT TEMPORAL BONES: The external auditory canal appears normal.Middle ear and mastoid air cells are well-aerated. The ossicular chain isintact. The tegmen tympani and tegmen mastoideum are intact. There isdehiscence/thinning of the osseous covering overlying the left superiorsemicircular canal (seen on series 13 image 85). Internal auditory canal,cochlea and semicircular canals appear normal otherwise. Vestibularaqueduct appears normal. Carotid canal and jugular foramen appearnormal. IMPRESSION: 1. Dehiscence/thinning of the osseous covering overlying the leftsuperior semicircular canal. 2. Trace right mastoid air cell fluid. Otherwise normal appearance of thetemporal bones. 3. Mucosal thickening involving the right maxillary sinus near the rightmaxillary infundibulum contributing to obstruction. Mucosal thickeningcontributing to obstruction of the sphenoid ostia. Otherwise well-aeratedparanasal sinuses. Referred By: Interpreted By: Blake Davis MD, 01/31/2024 2:16 AM us Keon Swartz MD CT Fi nal Result * CORTISOL FREE URINE 24 HR (01/27/2024 7:35 AM [facility]ER) VOLUME (U) 2,200 01/28/2024 7:[address] [facility] CORTISOL FREE (U) 16.1 4.0 - 50.0 mcg/24 h 02/06/2024 10:30 PM [facility] [employer] TODD LINCOLN Comment: This test was developed and its analytical performance characteristics have been determined by [facility]. It has not been cleared or approved by FDA. This assay has been validated pursuant to the CLIA regulations and is used for clinical purposes. CREATININE 24HR (U) 1.71 0.50 - 2.15 g/24 h 02/06/2024 10:30 PM [facility] [employer] MICHAELBARRON LINCOLN Comment: Test performed by [facility] ? [id number], ? [place] [address] ? Computational Sciences Professor: Shannan Tobar MD,PHD,LOLIS Test Reported by [employer] Jammie [employer] [place], [address] [place] [address] Kamran Wood M.D., Ph.D., Director of Laboratories , CLIA [id number] URINE SPECIMEN / Unknown 01/27/2024 7:35 AM [facility]ER us Ej Schmid MD URINE ORDERABLES Final Resul t [facility] [employer] [place] [id number] [place], [place] , [place] [phone] [facility] [address] [place] [address], [place] [phone] * (ABNORMAL) THYROID PEROXIDASE ANTIBODY (01/22/2024 9:59 AM [facility]ER) THYROID PEROXIDASE MICROSOMAL AB 37(H) <9 IU/mL 01/28/2024 4:15 AM [facility] [employer] TODD LINCOLN Comment: Test Performed by [employer], [facility], [address] [place], [place] Kamran Wood M.D., Ph.D., Director of Laboratories , [facility] [id number] 01/22/2024 9:59 AM [facility] Ej Schmid MD LABORATORY Final Result Performing Organization Address City/[facility]/ZIP Co de Phone Number [facility] [employer] [facility] [address] [place], [place] , * THYROID STIM HORMONE TSH (01/22/2024 9:59 AM [facility]CK [facility]ER) TSH 2.671 0.358 - 3.74 uIU/ML 01/22/2024 11:[address] [facility] Comment: HIGH DOSES OF BIOTIN MAY INTERFERE WITH THIS TEST RESULT. CORRELATION TO CLINICAL HISTORY AND PRESENTATION RECOMMENDED. 01/22/2024 9:59 AM [facility] Ej Schmid MD LABORATORY Final Result Performing Organization Address [facility]/RUST de Phone Number [facility] [address] [place] [address], [place] [phone] * Complete PFT (pre/post Robbie, Lung Vol, Diff Capacity) (12853, 72630, 93831, 91519) (01/22/2024 8:00 AM [facility]ER) Narrative [facility] - 01/22/2024 8:00 AM [facility]ER Riki Jackman MD ? 01/25/2024 ??9:52 AM ?? [facility] PULMONARY FUNCTION TEST REPORT Narcisa Gamino INTERPRETATION Please see scanned PFT report for raw values, flow-volume loop, and therapist's comments. Spirometry: Prebronchodilator FVC 2.78 L, 74% predicted. ??FEV1 1.72 L, 58% predicted. ??FEV1/FVC 62%. Postbronchodilator FVC 2.99 L, 79% predicted. ??FEV1 1.67 L, 56% predicted. ??FEV1/FVC 56%. Less than significant response to bronchodilator. Lung volumes: TLC 109% predicted. ??RV 133% predicted. Diffusing capacity: Unadjusted DLCO 89% predicted. IMPRESSION: 1. ??Moderate obstructive ventilatory limitation by gold criteria. 2. ??Less than significant response to bronchodilator, this does not preclude use. ??Clinical correlation advised. 3. ??Total lung capacity within normal limits. 4. ??Unadjusted DLCO within normal limits. RIKI JACKMAN MD us Riki Jackman MD PFT ORDERABLES Final Resul t [facility] [address] [place] [address], [place] [phone] * SPIROMETRY GENERIC (SCAN ORDER) (01/22/2024) 01/22/2024 [facility] Scanned SCANNING Final Resu lt * (ABNORMAL) DRUG SCREEN RAPID (01/20/2024 7:36 PM [facility]ER) AMPHETAMINE SCREEN (U) NEGATIVE NEGATIVE 01/20/2024 7:[address] [facility] BARBITURATES SCREEN (U) NEGATIVE NEGATIVE 01/20/2024 7:[address] [facility] BENZODIAZEPINES SCREEN (U) NEGATIVE NEGATIVE 01/20/2024 7:[address] [facility] BUPRENORPHINE SCREEN (U) NEGATIVE NEGATIVE 01/20/2024 7:[address] [facility] COCAINE METABOLITES (U) NEGATIVE NEGATIVE 01/20/2024 7:[address] [facility] METHAMPHETAMINE (U) POSITIVE(A) NEGATIVE 01/20/2024 7:[address] [facility] METHADONE (U) NEGATIVE NEGATIVE 01/20/2024 7:57 PM [facility] OPIATE SCREEN (U) NEGATIVE NEGATIVE 024 7:57 PM [facility] OXYCODONE SCREEN (U) NEGATIVE NEGATIVE 01/20/2024 7:57 PM [facility] PHENCYCLIDINE PCP (U) NEGATIVE NEGATIVE 01/20/2024 7:57 PM [facility] CANNABINOIDS SCREEN (U) NEGATIVE NEGATIVE 01/20/2024 7:57 PM [facility] TRICYCLIC ANTIDEPRESSANT SCREEN (U) NEGATIVE NEGATIVE 01/20/2024 7:57 PM [facility] Comment: NOTE: RESULTS OF THIS DRUG SCREEN SHOULD BE USED FOR MEDICAL PURPOSES ONLY AND NOT FOR LEGAL OR EMPLOYMENT PURPOSES. POSITIVE RESULTS ARE NOT CONFIRMED. MEDICATIONS CONTAINING EPHEDRINE MAY CAUSE FALSE POSITIVE AMPHETAMINE Cut-off Concentration for a positive result AMPHETAMINE- ?500 NG/ML BARBITURATE- ?200 NG/ML BENZODIAZEPINE- ?? 150 NG/ML BUPRENORPHINE- ? 10 NG/ML COCAINE- ?150 NG/ML METHAMPHETAMINES- 500 NG/ML METHADONE- ?200 NG/ML OPIATE- ? 100 NG/ML OXYCODONE- ?100 NG/ML PCP- ? 25 NG/ML THC- ? 50 NG/ML TCA- ?300 NG/ML U PH 6 01/20/2024 7:57 PM [facility] URINE SPECIMEN / Unknown 01/20/2024 7:36 PM [facility] Jonna Durham MD URINE ORDERABLES Harriet hopkins Result Performing Organization Address City/State/[facility] Co de Phone Number [facility] [address] [place] [address], * XR CHEST PORTABLE (01/20/2024 6:33 PM [facility]ER) Anatomical Region Laterality Modality Chest Radiographic Sonia ging 01/20/2024 6:34 PM [facility]ER Impressions 01/20/2024 6:34 PM [facility]ER IMPRESSION: 1. ??NO RADIOGRAPHIC EVIDENCE OF ACTIVE DISEASE THE CHEST. Signed: Harry Tran MD Referred By: ?? Interpreted By: Harry Tran MD, 01/20/2024 6:34 PM Narrative 01/20/2024 6:34 [place] [address] PATIENT NAME: NARCISA GAMINO EXAM: Chest one view DATE OF EXAM: 01/20/2024 COMPARISON EXAM: 10/08/2022 INDICATION: Palpitations, chest tightness TECHNIQUE: AP chest FINDINGS: Borderline heart size. ??Pulmonary vasculature within normal limits. ??No acute focal pulmonary parenchymal opacity. ??No pleural effusion. ??No hyperinflation. Procedure Note Harry Tran MD - 01/20/2024 [place] [address] PATIENT NAME: NARCISA GAMINO EXAM: Chest one view DATE OF EXAM: 01/20/2024 COMPARISON EXAM: 10/08/2022 INDICATION: Palpitations, chest tightness TECHNIQUE: AP chest FINDINGS: Borderline heart size. Pulmonary vasculature within normallimits. No acute focal pulmonary parenchymal opacity. No pleuraleffusion. No hyperinflation. IMPRESSION: 1. NO RADIOGRAPHIC EVIDENCE OF ACTIVE DISEASE THE CHEST. Signed: Harry Tran MD Referred By: Interpreted By: Harry Tran MD, 01/20/2024 6:34 PM Layne D Brandon DO GENERAL IMAGING Final Result * TROPONIN, QUANT (01/20/2024 6:26 PM [facility]ER) TROPONIN I HIGH SENSITIVITY 6 0 - 54 ng/L 01/20/2024 7:[address] [facility] Comment: HIGH DOSES OF BIOTIN, TROPONIN-SPECIFIC AUTOANTIBODIES, AND ANTIBODY THERAPY CONTAINING HAMA MAY INTERFERE WITH THIS TEST RESULT. CORRELATION TO CLINICAL HISTORY AND PRESENTATION RECOMMENDED. 01/20/2024 6:26 PM [facility]ER Layne Taylor DO LABORATORY Final Result [facility] [address] [place] [address], * ECG 12 lead (01/20/2024 6:14 PM MUCK [facility]ER) 01/20/2024 6:14 PM [facility]ER Narrative [facility] (B) RAD - 01/24/2024 10:28 PM MUCK [facility]ULER ? [facility] ? Test Date: ?2024-01-20 Pat Name: ? NARCISA GAMINO ?Department: ?? 80 ? Room: ? EXAM 101 Gender: ? Female ? 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 : ?1970 ? Requested By: LAYNE TAYLOR Order Number: [id number] ? Reading MD: ?? Shen Price ? Measurements Intervals ?[place] ? Rate: ? 96 ? P: ?62 NM: ? 161 ?QRS: ?-29 QRSD: ? 111 ?T: ?66 QT: ? 352 ? QTc: ?446 ? Interpretive Statements SINUS RHYTHM BORDERLINE LEFT AXIS DEVIATION ??[QRS AXIS < -20] INCOMPLETE RIGHT BUNDLE BRANCH BLOCK ??[90+ ms QRS DURATION, TERMINAL R IN V1/V2, 40+ ms S IN I/aVL/V4/V5/V6] Compared to ECG 04/08/2023 11:56:42 No significant changes [facility] Procedure Note Shen Price MD - 01/24/2024 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: : 1970 Requested By: LAYNE TAYLOR Order Number: [id number] Reading MD: Shen Price Measurements Intervals [place] Rate: 96 P: 62 NM: 161 QRS: -29 QRSD: 111 T: 66 QT: 352 QTc: 446 Interpretive Statements SINUS RHYTHM BORDERLINE LEFT AXIS DEVIATION [QRS AXIS < -20] INCOMPLETE RIGHT BUNDLE BRANCH BLOCK [90+ ms QRS DURATION, TERMINAL RIN V1/V2, 40+ ms S IN I/aVL/V4/V5/V6] Compared to ECG 04/08/2023 11:56:42 No significant changes HAULER us Layne Taylor DO ECG ORDERABLES Final Result [facility] ([facility]) RAD * NCVS\EMG ([place]) (12/24/2023 11:00 AM MUCK HAULER) Narrative Zeke Guzman MD - 12/24/2023 11:00 AM MUCK HAULER Zeke Guzman MD ? 12/24/2023 ??8:26 PM Brief history Ms. Gamino has right shoulder pain, and reduced range of motion that happened following traumatic injury, when her dog pulled the leash, and she hit her shoulder. ??She has since then undergone repair of complete rotator cuff tear. ??Preoperatively, she had noticed numbness and tingling in her fourth and fifth digit. ?? Sometimes the symptoms radiate down from her elbow. ??Sometimes it was more localized. ??The shoulder pain has improved. ??She is able to move better. ??But she she now has numbness and tingling in the fourth fifth digit of the right hand. She used to feel like her entire arm was numb, but now this is more localized to the last 2 digits. Exam There is sensory dysesthesia between the median and ulnar nerve distribution to temperature. ??Reflexes are 2+ symmetric. ?? Liborio sign is negative bilaterally. ??There is no Tinel's sign at the wrist. ??There is a positive Tinel sign at the elbow on the right. For sensory nerve conduction studies, the amplitude is measured [id number], the latency reported is the distal peak latency, and the conduction velocity, if measured, is determined from onset latencies and is over the forearm. For motor nerve conduction studies, the amplitude is measured [id number], the latency reported is the distal onset latency, the conduction velocity is calculated over the forearm, and the F wave latency is the minimum latency. Unless otherwise noted, the hand temperature was monitored continuously and remained between 32??C and 36??C during the performance of the NCSs.The study was performed with a concentric needle electrode. Fibrillation and fasciculation activity is graded from none (0) to continuous (4+). The configuration and recruitment pattern of motor unit action potentials under voluntary control, if not normal, are described below. Abbreviations: NCS= nerve conduction study SNAP= sensory nerve action potential CMAP= compound muscle action potential MUP= motor unit potential EMG= electromyogram F IBS= fibrillations PS W's= positive sharp waves . Ulnar neuropathy at elbow severity Mild UNE: Slowed ulnar motor NCV across the elbow, with normal SNAP Moderate UNE: Slowed ulnar motor NCV across the elbow, with reduced SNAP amplitude Severe UNE: Slowed ulnar motor NCV across the elbow, with absent SNAP in the 5th finger-wrist segment Gabriel L, Raghavendra I, Theodora O, Gabriel R, Kt E, Antonio P, Naresh F, Armand'Gus P, Karley P. Neurophysiological classification of ulnar entrapment across the elbow. Neurol Sci. 2001 Mar;22(1):11-6. Summary of findings Left median motor NCS shows small CMAP amplitude Right median motor NCS is normal Left ulnar motor NCS is normal Right ulnar motor NCS shows slowing across the elbow Right radial motor NCS is normal Bilateral median sensory NCS shows prolonged latency right worse than left Bilateral ulnar sensory NCS is normal Left radial sensory NCS is normal Right radial sensory NCS is absent Bilateral median orthodromic mixed NCS shows prolonged latency and small amplitude right worse than left Right ulnar orthodromic mixed NCS shows small amplitude Left ulnar orthodromic mixed NCS is normal Needle EMG of the right upper limb shows increased insertional activity and flexor carpi ulnaris Conclusion 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 ??There is bilateral mild incidental median mononeuropathy at the wrist. ??There is no evidence of a superimposed cervical radiculopathy or a brachial plexopathy. Gustavo Alvarado MD NEUROLOGY ORDERABLES Final Re sult * MG SCREENING W TRINY RAÚL DIGI (06/07/2023 10:08 AM CDT) Anatomical Region Laterality Modality Breast Bilateral Mammography 06/07/2023 11:5 4 AM CDT Impressions 06/07/2023 11:58 AM CDT IMPRESSION: ??No significant interval change. No mammographic evidence of malignancy. ? RECOMMENDATION: ??Routine ScreeningBilateral OVERALL IMAGING ASSESSMENT: ACR BI-RADS 2 - BENIGN FINDING(S). ? Ordered By: MAGDALENA FULLER Interpreted By: Wale Conde, 06/07/2023 11:54 AM Narrative 06/07/2023 11:58 AM CDT EXAMINATION: MG SCREENING W TRINY RAÚL DIGI ? INDICATIONS: Screening ?? TECHNIQUE: Digital full field CC and MLO screening mammography bilaterally to include 3-D Tomosynthesis technique. This study was read with the assistance of a computer-aided detection system. HISTORY: No reported breast complaint. Prior breast biopsy. Family history of breast cancer in mother. COMPARISON: 02/06/2019, 01/23/2019, 12/30/2018, 08/28/2016, and 08/24/2016 ? TISSUE DENSITY: There are scattered areas of fibroglandular density. FINDINGS: Biopsy clip in the far posterior left breast. Few typically benign round calcifications. No suspicious microcalcification or mass. No developing asymmetry or architectural distortion. No axillary adenopathy. Magdalena Fuller DRY PRESS OPERATOR HELPER MAMMO Final R esult from Last 3 Months or Most Recently Relevant to Health Maintenance Insurance [employer] MEDICAID Care Teams Director Of Program Management Relationship Specialty Start Date End Date Edith Boo MD [address] [address] PCP - General 05/20/23
--- OUTSIDE RECORDS SUMMARY | 2024-03-16 13:07 | XMS_ITS | Patient Health Summary ---
Author Organization [facility] Address [address] [place] [address] Care Team Providers Care Civilian Technician Name Role Phone Nancy Harp BRICK STACKER-PULLEY MORTISER OPERATOR Primary Care Provi tara Note from [facility],non-owned Affiliates and Associated Physician Practices is amultiple site organization consisting of ambulatory clinics and hospital sitesin [place], [place], [place] and [place]. This disclosure is being madepursuant to the Care Everywhere program and may not contain all information available regarding this patient. Last updated 17.[facility] Allergies No known active allergies Medications * Be aware that medications may not be up to date on this document. Alwaysverify current medications with the patient. * fluticasone-vilanterol (Breo Ellipta) 200-25 MCG/ACT inhaler(Started 11/17/2021) once daily * rosuvastatin (Crestor) 5 MG tablet(Started 10/26/2021) once daily * Levothyroxine Sodium 75 MCG/ML SOLN * sertraline (Zoloft) 100 MG tablet Take 1 (one) tablet by mouth once daily * clonazePAM (KlonoPIN) 0.5 MG tablet Take 1 (one) tablet by mouth 2 times daily as needed for Anxiety * VITAMIN D PO Take 50,000 mg by mouth every 7 days * azithromycin (Zithromax) 250 MG tablet(Started 10/06/2022) 500 mg PO on the first day; then, 250 mg PO daily for 4 days * methylPREDNISolone (Medrol Dosepak) 4 MG tablet(Started 10/06/2022) Take by mouth as directed Take as directed by mouth per package instructions. Start 10/07/2022 * albuterol HFA (ProAir HFA) 108 (90 Base) MCG/ACT inhaler(Started 10/06/2022) Inhale 2 (two) puffs by mouth every 4 hours as needed Social History Tobacco Use Types Packs/Day Years [...] - - Body Mass Index - - Care Teams Civilian Technician Relationship Specialty Start Date End Date Nancy Harp APRN-PATRICIO [address] [place] [address] PCP - General 06/03/23
--- OUTSIDE RECORDS SUMMARY | 2024-03-16 13:07 | XMS_ITS ---
Author Organization [facility] Address [facility] [place] [address] Care Team Providers Care Parole Agent Name Role Phone Edith Boo MD Primary Care Provider Nai Fink Unavailable [phone] REASON FOR VISIT Other Social History Sex Assigned At : Social History Observation Description Sex Assigned At Female Encounters Encounter Location Date Provider Diagnosis [place] [address] [place] [address] 11/06/2023 Nai London Plan Of Treatment No Information Progress Notes * NARCISA GAMINO MDOB:1970 (53 yo F)Acc No.[id number]:11/06/2023 Patient:?NARCISA GAMINO :1970???Age:53 Y???Sex:Female Address:[address] [place] [address], [address] * true * Date:? Generated for Printi ng/Fatheodoreg/eTransmitting on:?03/16/2024 01:06 PM STAFF ANESTHESIOLOGIST
--- OUTSIDE RECORDS SUMMARY | 2024-03-16 13:07 | XMS_ITS | Encounter Summary ---
Author Organization [facility] Address [address] [place] [address]. [place] [address] [place] [address] Care Team Providers Care Lap Machine Tender Name Role Phone Edith Boo MD Primary Care Provider [phone] Encounter Details Date Type Department Care Team ([facility] Contact Info) Description 07/29/2023 Bondsy Message Enc [facility] Orthopedic & Sports Medicine - [place] [address] [place], [facility] Provider physical therapy Social History Tobacco Use Types Packs/Day Years [...] Answer Date Recorded Patient Health Questionnaire-2 Score 1 06/14/2023 Comments No Sex and Gender Information Value Date Recorded Sex Assigned at Female 03/05/2024 8:18 AM CUTTER ALUMINUM SHEET Legal Sex Female 8:06 PM CDT Gender Identity Female 12/29/2021 4:00 PM CUTTER ALUMINUM SHEET Sexual Orientation Not on file documented as of this encounter Plan of Treatment Upcoming Encounters Date Type Department Care Team (Late st Contact Info) Description 03/20/2024 9:00 AM CUTTER ALUMINUM SHEET Appointment [facility] [address] [place] [address] Amna Dodson, PT [address] [place] [address] Gustavo Alvarado MD [address] [facility] [address] [place] [address] Hector Harrison MD [address] [facility] [place] [address] Litzy Story, OT [address] [place], [place] [phone] 03/26/2024 9:40 AM CUTTER ALUMINUM SHEET Office Visit [facility] - [place] [address] [place], [place] [address] [phone] Hector Harrison MD [address] [place], [place] [address] [phone]- 03/30/2024 9:20 AM CUTTER ALUMINUM SHEET Office Visit [facility] Multispecialty Care - [facility] [address] [facility] [place] [address] Suman Perez MD [address] [facility] [address] [place] [address] documented as of this encounter Visit Diagnoses Not on filedocumented in this encounter Care Teams Lap Machine Tender Relationship Specialty Start Date End Date Edith Boo MD [address] [facility] [address] [place] [address] PCP - General 05/20/23 documented as of this encounter
== END 2024-03-16 12:34 | disposition home or self-care (01) ==
PROVIDERS: PCP Family Medicine; Visit Provider Internal Medicine
DX: E04.1 Nontoxic single thyroid nodule (principal)
CPT/HCPCS: 10005; 88172; 88173; 88177; 88305